=== PATIENT | male | born 1935 | race Caucasian/White ===

== ENCOUNTER 2023-10-08 17:53 | Inpatient (IN) | payer MEDICARE, SELFPAY ==
[2023-10-08] VITALS (24 sets, daily range): BP systolic 84–145; BP diastolic 52–105; PULSE 82–208; RESP 14–27; TEMP 36.6–37; O2SAT 93–99; BMI 29.5; BMI 26.4
--- NOTE | 2023-10-08 18:24 | RAD_ITS ---
EXAM: XR CHEST, 1 VIEW CLINICAL INDICATION: Weakness, CAD TECHNIQUE: Frontal view of the chest. COMPARISON: No relevant prior studies available. FINDINGS: LUNGS AND PLEURAL SPACES: Unremarkable. No consolidation or edema. No pneumothorax. No effusion. HEART: Unremarkable. Cardiac silhouette not enlarged. MEDIASTINUM: Central airways and mediastinal contour are unremarkable. BONES/JOINTS: Unremarkable. No acute fracture. SOFT TISSUES: Unremarkable. RAD/Chest 1 View (Portable) IMPRESSION: No radiographic evidence of acute cardiopulmonary disease. Electronically Signed: Sreekanth Soler MD at 19:19 EDT ,
--- NOTE | 2023-10-08 18:24 | CT_ITS ---
EXAM: CT ABDOMEN AND PELVIS WITH INTRAVENOUS CONTRAST CLINICAL INDICATION: Nausea and Vomiting TECHNIQUE: Helically acquired images were obtained of the abdomen and pelvis with intravenous contrast. This CT exam was performed using one or more of the following dose reduction techniques: automated exposure control, adjustment of the mA and/or kV according to patient size, and/or use of iterative reconstruction technique. CONTRAST: IV 100mL Isovue-300 COMPARISON: No relevant prior studies available. FINDINGS: LOWER THORAX: There is a small left-sided pleural effusion. There are coronary artery calcifications. No cardiomegaly. ABDOMEN: LIVER: There are low-density areas in the dome of the liver which may represent cysts or possibly a mass lesion. There is a nodular margin of the liver compatible with cirrhosis. GALLBLADDER AND BILE DUCTS: Unremarkable. No calcified gallstones. No gallbladder distention or wall edema. No intra- or extrahepatic biliary ductal dilation. PANCREAS: Unremarkable. No focal cystic or solid mass. SPLEEN: Unremarkable. Normal size without focal cystic or solid mass. ADRENALS: Unremarkable. No nodules. KIDNEYS AND URETERS: There are low-density masses in both kidneys compatible simple cysts. No follow-up imaging is necessary. No hydronephrosis. STOMACH AND BOWEL: There are sigmoid diverticulosis with no evidence of diverticulitis. No stomach or bowel distention. PELVIS: APPENDIX: No evidence of acute appendicitis. BLADDER: Unremarkable. REPRODUCTIVE: Unremarkable as visualized. No mass. ABDOMEN and PELVIS: INTRAPERITONEAL SPACE: There is a moderate amount of free fluid in the abdomen and pelvis compatible with ascites. No free air. BONES/JOINTS: There is beam hardening artifact in the pelvis due to bilateral hip replacements. No suspicious lytic or blastic abnormality. SOFT TISSUES: Unremarkable. No discrete abdominal or pelvic wall hernia. VASCULATURE: See above. LYMPH NODES: Unremarkable. No enlarged lymph nodes. CT/Abdomen/Pelvis W IV Cont ONLY IMPRESSION: 1. Nodular margin liver compatible cirrhosis. There is a large amount of free fluid in the abdomen ascites. 2. Multiple low-density areas near the dome of the right lobe of the liver which may represent multiple cysts or possibly a hepatic mass. If indicated further evaluation with MRI may be beneficial. 3. Left-sided pleural effusion with left basilar consolidation likely representing atelectasis. Electronically Signed: Sreekanth Soler MD at 20:18 EDT ,
--- NOTE | 2023-10-08 18:24 | EKG12_ITS ---
Test Reason : WEAKNESS Blood Pressure : / mmHG Vent. Rate : 096 BPM Atrial Rate : 096 BPM P-R Int : 170 ms QRS Dur : 086 ms QT Int : 378 ms P-R-T Axes : 045 -20 006 degrees QTc Int : 477 ms Normal sinus rhythm Possible Inferior infarct , age undetermined Cannot rule out Anterior infarct , age undetermined Abnormal ECG Confirmed by MICHAEL BOWLES, OLIVIER ([id number]), videotape editor VI AMBRIZ ([id number]) on 10/14/2023 1:39:56 PM Referred By: BOBBY Confirmed By:SAIDA RODRIGUEZ MD
--- NOTE | 2023-10-08 18:31 | EDS_ITS ---
HPI History of Present Illness Chief Complaint: Weakness Limited: dementia Narrative Narrative: 87-year-old male presents from home via EMS with generalized weakness, nausea and vomiting. His history and physical is mildly limited secondary to dementia. 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 They relate history that he has had nausea and vomiting over the last 4 days. They tried to get him up out of bed today as they live next- door, and he was generally weak. He usually assists in transfer by pressing on his bilateral hands, but today he was so weak that he slid down off the bed onto the floor. Patient states that he has had multiple episodes of vomiting, at least 20 times today without any blood in his emesis. He denies any problems with bowel movements, no diarrhea. [facility] Medical History (Updated 10/08/23 @ 22:12 by Enrique Anne MD) BPH (benign prostatic hyperplasia) Constipation GERD (gastroesophageal reflux disease) Hyperlipidemia Hypertension Hypokalemia Non-alcoholic cirrhosis Pancreatitis Prostate cancer Stroke Home Medications aspirin 81 mg tablet,delayed release (Adult Low Dose Aspirin) 81 mg PO DAILY 10/08/23 [History Last Taken Unknown] atorvastatin 80 mg tablet 80 mg PO DAILY 10/08/23 [History Last Taken Unknown] docusate sodium 100 mg capsule 100 mg PO DAILY PRN stool softener 10/08/23 [History Last Taken Unknown] furosemide 20 mg tablet 20 mg PO DAILY PRN edema 10/08/23 [History Last Taken Unknown] hydrocodone-acetaminophen 5-325mg 5mg-325mg 1 tab PO Q6H PRN PRN pain 10/08/23 [History Last Taken Unknown] hydrocortisone 2.5 % topical cream with perineal applicator (Procto-Med HC) 1 applic DC BID PRN skin irritation 10/08/23 [History Last Taken Unknown] lidocaine 5 % topical ointment 1 applic topical TID 10/08/23 [History Last Taken Unknown] pantoprazole 40 mg tablet,delayed release 40 mg PO DAILY 10/08/23 [History Last Taken Unknown] potassium chloride 8 mEq capsule,extended release 8 meq PO DAILY 10/08/23 [History Last Taken Unknown] spironolactone 25 mg tablet 25 mg PO DAILY 10/08/23 [History Last Taken Unknown] tamsulosin 0.4 mg capsule 0.4 mg PO DAILY 10/08/23 [History Last Taken Unknown] Allergy/AdvReac Type Severity Reaction Status Date / Time No Known Allergies Allergy Verified 10/08/23 18:43 Surgical History (Updated 10/08/23 @ 20:14 by Wali Ramírez) S/P triple vessel bypass Social History Smoking Status: Never smoker ROS ROS ED ROS Narrative Obtained from son-in-law. Constitutional: No fever, no chills. Generalized weakness. HEENT: No sore throat. No neck pain. No loss of vision. No rhinorrhea. Cardiovascular: No chest pain. No palpitations. No pedal edema. Respiratory: No cough, no shortness of breath. Abdominal: No abdominal pain. Positive nausea and vomiting, multiple episodes, no hematemesis, no diarrhea. Genitourinary: No dysuria. No hematuria. Musculoskeletal: No myalgias. No arthralgias. Neurologic: No headaches. No dizziness. No lightheadedness. Skin: No rash. No change in color. Psychiatric: No depression. No anxiety. EXAM Physical Exam Narrative Exam Narrative: Afebrile. Vital signs noted. HEENT: Normocephalic. Atraumatic. PERRL, EOMI. Neck soft and supple. No point tenderness or step off. Dry mucous membranes. Cardiovascular: Regular rate and rhythm with intermittent tachycardia. No murmurs, rubs, or gallops appreciated. Respiratory: No tachypnea. Lungs clear to auscultation bilaterally. Gastrointestinal: Abdomen soft, nontender, with normoactive bowel sounds. No rebound or guarding. Neurological: Awake. Alert. Nonfocal, nonlateralizing. Skin: No rash. Normal color. No pallor. Musculoskeletal: No pedal edema. Full range of motion extremities. Const Vital Signs: 10/08/23 17:56 10/08/23 18:01 10/08/23 18:01 Temperature 98.3 F Temperature Source Oral Pulse Rate 102 H Respiratory Rate 16 Respiratory Effort Normal Normal Respiratory Depth Normal Respiratory Pattern Tachypnea Normal Blood Pressure 108/83 H Blood Pressure Mean 91 Pulse Ox 94 Oxygen Delivery Method Room Air Room Air 10/08/23 18:36 10/08/23 18:45 10/08/23 19:01 Temperature 98.5 F 98.3 F Temperature Source Oral Oral Pulse Rate 99 94 Respiratory Rate 21 H 24 H Respiratory Effort Respiratory Depth Respiratory Pattern Blood Pressure 128/87 H 145/105 H Blood Pressure Mean 100 118 Pulse Ox 95 94 Oxygen Delivery Method Room Air Room Air Room Air 10/08/23 18:44 10/08/23 21:15 10/08/23 18:51 Temperature 98.6 F Temperature Source Oral Pulse Rate 91 97 Respiratory Rate 21 H 21 H Respiratory Effort Normal Respiratory Depth Normal Respiratory Pattern Tachypnea Blood Pressure 123/75 H Blood Pressure Mean 91 Pulse Ox 97 94 Oxygen Delivery Method Room Air Room Air 10/08/23 19:00 10/08/23 19:15 10/08/23 19:30 Temperature Temperature Source Pulse Rate 95 93 Respiratory Rate 14 23 H Respiratory Effort Respiratory Depth Respiratory Pattern Blood Pressure 145/105 H 144/76 H 139/83 H Blood Pressure Mean 115 95 89 Pulse Ox 93 96 Oxygen Delivery Method 10/08/23 19:38 10/08/23 19:45 10/08/23 20:00 Temperature Temperature Source Pulse Rate 208 H 91 96 Respiratory Rate 22 H 21 H 21 H Respiratory Effort Respiratory Depth Respiratory Pattern Blood Pressure 133/68 H Blood Pressure Mean 86 Pulse Ox 95 95 95 Oxygen Delivery Method Room Air 10/08/23 21:30 10/08/23 21:45 10/08/23 20:00 Temperature 98.4 F 98.1 F Temperature Source Oral Oral Pulse Rate 96 94 96 Respiratory Rate 27 H 16 21 H Respiratory Effort Respiratory Depth Respiratory Pattern Blood Pressure 112/72 103/70 116/69 Blood Pressure Mean 85 81 83 Pulse Ox 97 94 95 Oxygen Delivery Method Room Air Room Air 10/08/23 20:15 10/08/23 20:30 10/08/23 20:45 Temperature Temperature Source Pulse Rate 93 91 Respiratory Rate 21 H 18 22 H Respiratory Effort Respiratory Depth Respiratory Pattern Blood Pressure 129/76 H 140/76 H 84/52 L Blood Pressure Mean 87 96 61 Pulse Ox 94 95 94 Oxygen Delivery Method 10/08/23 21:00 10/08/23 21:15 10/08/23 21:30 Temperature Temperature Source Pulse Rate 91 93 Respiratory Rate 23 H 27 H Respiratory Effort Respiratory Depth Respiratory Pattern Blood Pressure 118/83 H 123/75 H 112/72 Blood Pressure Mean 94 90 81 Pulse Ox 97 96 Oxygen Delivery Method 10/08/23 21:45 10/08/23 21:46 Temperature Temperature Source Pulse Rate 94 Respiratory Rate 25 H 22 H Respiratory Effort Respiratory Depth Respiratory Pattern Blood Pressure 103/70 Blood Pressure Mean 82 Pulse Ox 96 Oxygen Delivery Method Sepsis Attestation Sepsis Alert: Yes Sepsis Attestation: Agree w/Sepsis (Unknown source) Date exam was performed: 10/08/23 Time exam was performed: 21:10 Possible Source of Sepsis: Unknown Sepsis Organ Dysfunction Criteria Present: Total Bilirubin > 2 mg/dl and Lactic Acid > 2 mmol/L Fluid Resuscitation Fluid resuscitation indicated?: Yes Fluid Resuscitation ordered: Lesser volume fluid bolus ordered Amount of fluid ordered: 2 Reason for lesser fluid bolus:: Concern for fluid overload and Other (Ascities and Pleural Effusion) Sepsis Note Time exam was performed: 21:50 Sepsis Attestation: Sepsis re-evaluation was performed (Patient not hypotensive) MDM MDM MDM Narrative Medical decision making narrative: Concern is for infectious process causing generalized weakness. With pneumonia in mind and urinary tract infection, chest x-ray and UA will be obtained. Patient could also be dehydrated given his reported multiple episodes of vomiting. With concerns for pancreatitis, lipase will also be obtained along with CBC and CMP. Patient was normotensive initially, but had a transient dip in his systolic blood pressure. He remained conscious. He will be bolused IV fluids and sepsis workup pursued. I reviewed the patient's laboratory work and he has slight elevation of his white count 11.1, hemoglobin 14.2, hematocrit 45.5, platelet count normal at 195. His INR is 1.3 and PTT slightly elevated 16.6. Chloride 110 with carbon dioxide normal at 25. BUN is elevated at 29 and creatinine elevated at 1.65. There is no prior with which to compare. He has an elevated total bilirubin of 4.7 with alk phos elevated at 138, AST is 268 but ALT normal at 43. Urinalysis is negative for infection with negative nitrite and 0 WBCs. I do not feel antibiotics are indicated. He has 5 ketones. His urine is juanito in color consistent with possible hepatorenal syndrome. I did review the radiology report of the CT of the abdomen pelvis with IV contrast. He has irregular contour of the liver consistent with cirrhosis, and a large amount of ascites as well. There is possibility of liver cyst versus liver mass on the radiology report as well. He has a left-sided pleural effusion. Chest x-ray interpreted by myself independently shows no pneumonia or pneumothorax. I reviewed the radiology report which confirms my independent interpretation. His lactic acid is elevated at 4.1. I am not sure this is sepsis because I do not have a source of infection. He has not had vomiting here in the emergency department. He was started on Zosyn and vancomycin and blood cultures obtained and are currently pending. Given his generalized weakness and his family's wishes to be admitted for placement in senior living/rehab, I discussed patient with Dr. Marin for admission. He would like him placed in the ICU. Patient is in guarded condition. History & Record Review Discussion w/independent historian: Patient and Family (Son-in-law) Additional record(s) reviewed:: No prior records Lab Data Attestation: I reviewed the patient's lab results. Labs: Laboratory Results - last 24 hr 10/08/23 10/08/23 18:15 18:33 WBC 11.1 H RBC 4.72 Hgb 14.2 Hct 45.5 MCV 96.4 H MCH 30.1 MCHC 31.2 L RDW Std Deviation 63.5 H RDW Coeff of Netta 18.2 H Plt Count 195 MPV 11.4 Immature Gran % (Auto) 0.600 Neut % (Auto) 84.5 H Lymph % (Auto) 5.9 L Sharp % (Auto) 8.6 Eos % (Auto) 0.0 Baso % (Auto) 0.4 Absolute Neuts (auto) 9.4 H Absolute Lymphs (auto) 0.65 L Nucleated RBC % 0 PT 16.6 H INR 1.3 APTT 29.2 Sodium 143 Potassium 4.6 Chloride 110 H Carbon Dioxide 25.0 Anion Gap 8 BUN 29 H Creatinine 1.65 H Est GFR (MDRD) Af Amer 51 L Est GFR (MDRD) Non-Af 42 L BUN/Creatinine Ratio 17.6 Glucose 149 H Lactic Acid 4.1 H* Calcium 10.0 Total Bilirubin 4.70 H AST 268 H ALT 43 Alkaline Phosphatase 138 H Troponin I High Sens 16 Total Protein 8.3 H Albumin 2.4 L Globulin 5.9 H Albumin/Globulin Ratio 0.4 L Lipase 20 Urine Color Juanito Urine Clarity Clear Urine pH 5.0 Ur Specific [place] 1.020 Urine Protein 30 H Urine Glucose (UA) Normal Urine Ketones 5 H Urine Occult Blood 50 H Urine Nitrite Negative Urine Bilirubin 1 H Urine Urobilinogen 8 H Ur Leukocyte Esterase 25 H Urine RBC 0-5 SEEN Urine WBC 0 SEEN Ur Squamous Epith Cells 0-5 SEEN Urine Bacteria RARE Urine Mucus 0 SEEN Radiography Diagnostic Testing: Clinical Impression(s) from Imaging Studies Abdomen/Pelvis CT 10/08/23 18:24 IMPRESSION: 1. Nodular margin liver compatible cirrhosis. There is a large amount of free fluid in the abdomen ascites. 2. Multiple low-density areas near the dome of the right lobe of the liver which may represent multiple cysts or possibly a hepatic mass. If indicated further evaluation with MRI may be beneficial. 3. Left-sided pleural effusion with left basilar consolidation likely representing atelectasis. Electronically Signed: Sreekanth Soler MD at 20:18 EDT , Chest X-Ray 10/08/23 18:24 IMPRESSION: No radiographic evidence of acute cardiopulmonary disease. Electronically Signed: Sreekanth Soler MD at 19:19 EDT , Management Discussion w/another healthcare provider: Hospitalist (Dr. Marin) Critical Care Time Critical care time (excluding procedures): 30-74 minutes (31 minutes), Including time spent:, Discussing w/Patient &/or Family/Show Card Letterer, Discussing w/Consultants, Arranging Admission or Transfer and Performing Direct Patient Care at Bedside Discharge Plan Dx/Rx/DC Orders Clinical Impression: Ascites, Unable to care for self, Generalized weakness, Cirrhosis of liver, Pleural effusion, Sepsis, Nausea and vomiting Disposition Disposition: Acute Care [facility]
[2023-10-08 18:34] LABS: Absolute Lymphocyte Count 0.65 X10^3/uL (0.83-4.51); Absolute Neutrophil Count 9.4 X10^3/uL (2.0-7.7); Basophil# 0.04 X10^3/uL; Basophil% 0.4 % (0-1); Hematocrit 45.5 % (40-54); Hemoglobin 14.2 g/dL (13.0-16.5); Lymphocyte # 0.65 X10^3/ul (0.83-4.51); Lymphocyte % 5.9 % (19-41); Mean Corp Hgb Conc 31.2 g/dL (32-36); Mean Corpuscular Hgb 30.1 pg (27.0-32.0); Mean Corpuscular Volume 96.4 fL (80-94); Mean Platelet Vol. 11.4 fl (6.2-12.0); Monocyte# 0.95 X10^3/uL; Monocyte% 8.6 % (0-10); NRBC Flagged by Analyzer 0 % (0-5); Neutrophil % 84.5 % (47-70); Platelet Count 195 K/mm3 (150-450); RBC Distribution Width CV 18.2 % (11.6-14.6); RBC Distribution Width SD 63.5 fl (35.1-43.9); Red Blood Count 4.72 M/mm3 (4.6-6.2); White Blood Count 11.1 K/mm3 (4.4-11.0)
[2023-10-08 18:44] LABS: Mucous, Urine 0 SEEN /hpf (<or=2+); White Blood Cells 0 SEEN /hpf (0-5)
[2023-10-08] MEDS: 0.9% Normal Saline (1000mL) 1,000 ML 999 ML IV ×3 (18:47→22:39)
[2023-10-08 18:51] LABS: International Normalized Ratio 1.3; Partial Thromboplast Time 29.2 Seconds (24.1-36.2); Prothrombin Time (Protime)PT. 16.6 SECONDS (11.7-14.9)
[2023-10-08 18:52] LABS: Color, Urine Amber (Yellow); Glucose, Dipstick Normal (Normal); Ketone-Dipstick 5 mg/dl (Negative); Leukocyte Esterase-Dipstick 25 /ul (Negative); Nitrite-Dipstick Negative (Negative); Occult Blood-Urine 50 /ul (Negative); Protein-Dipstick 30 mg/dl (Negative); Urine Clarity Clear (Clear); Urine Urobilinogen 8 mg/dl (Normal)
[2023-10-08 19:03] LABS: ALB/GLOB Ratio 0.4 RATIO (0.9-2.4); AST(SGOT) 268 U/L (15-37); Alanine Aminotransfer ALT/SGPT 43 U/L (16-61); Albumin, Serum 2.4 g/dL (3.2-5.0); Alkaline Phosphatase 138 U/L (45-117); Anion Gap 8 (5-15); BUN 29 mg/dL (7-18); BUN/Creat Ratio 17.6 RATIO (10-20); Chloride 110 mmol/L (98-107); Creatinine, Serum 1.65 mg/dL (0.70-1.30); EST Glomerular Filtration Rate 42 mL/min (>60); Est Glom Filt Rate - Afr Amer 51 mL/min (>60); Globulin 5.9 g/dL (2.2-4.2); Glucose 149 mg/dL (74-106); Lipase 20 U/L (13-75); Potassium 4.6 mmol/L (3.5-5.1); Protein, Total 8.3 g/dL (6.4-8.2); Sodium Level 143 mmol/L (136-145); Troponin-I HS 16 pg/mL (3.0-78.0)
[2023-10-08 19:05] LABS: Urine Bilirubin Dipstick 1 mg/dL (Negative)
[2023-10-08 19:07] LABS: Squamous Epithelial Cells - UA 0-5 SEEN /hpf (0-5)
[2023-10-08 19:08] LABS: Bacteria RARE /hpf (None Seen); Red Blood Cells-Urine 0-5 SEEN /hpf (0-5)
[2023-10-08 19:43] LABS: Lactic Acid 4.1 mmol/L (0.4-1.9)
[2023-10-08] MEDS: TICAGRELOR 90 MG TABLET 180 MG NG (20:23)
[2023-10-08] MEDS: Aspirin 81 MG TAB.CHEW 324 MG NG (20:23)
[2023-10-08] MEDS: Piperacil/Tazobactam 4.5 GM in 0.9% Normal Saline (100mL MB+) 100 ML IV (21:12)
--- NOTE | 2023-10-08 21:26 | HP.PCM.HOS_ITS ---
[facility] - General General Date of Admission: 10/08/23 Date of Service: 10/08/23 Chief Complaint: Nausea, Vomiting and Generalized Weakness. [facility] Narrative TREY GRESHAM, is a 87 M with a past medical history of essential hypertension, CAD; s/p CABG x 3, history of CVA, history of CHANEY; with cirrhosis, history of pancreatitis, BPH, history of prostate cancer, GERD, OA and chronic dementia who presents to [facility] ER complaining of nausea, vomiting and generalized weakness. Mr. Jon is not a fully reliable historian at this time so information was gathered from chart, medical staff and computer. According to the records he [place] to his son-in-law who is also his [employer] for medical care. He informed the ER staff that the patient has had nausea and vomiting over the past 4 days that has progressively worsened. They tried to get him up out of bed today and he was much weaker than normal and unable to even assist them in transferring out of bed. The patient was so weak that he slid off the bed onto the floor in spite of assistance. The son-in-law also reports the patient has had at least 20 episodes of bilious emesis today without any blood noted in his emesis or stool. There is no complaint of diarrhea, constipation, chest pain or abdominal pain. In the ER patient was noted to have a total bilirubin of 4.7 mg/dL with an elevated AST of 268 units/L and alkaline phosphatase of 138 units/L with leukocytosis of 11.1 present on admission and lactic acidosis of 4.1 present on admission with the ER physician diagnosing patient with sepsis of unknown origin and starting him on empiric IV vancomycin and Zosyn with a CT scan of the abdomen pelvis done on admission that revealed cirrhosis with large free fluid in the abdomen along with multiple low-density areas near the dome of the right lobe of the liver which may represent multiple cyst or possibly hepatic mass with MRI recommended finally patient was also noted to have a left-sided pleural effusion with left basilar consolidation suspicious for pneumonia versus atelectasis compounded by clinical evidence of generalized weakness with ambulatory dysfunction and suspected hepatic encephalopathy complicating chronic dementia and he was then admitted to the ICU for ongoing care for status expected to be greater than 48 hours. [facility] Medical History (Updated 10/09/23 @ 01:[address] Donny de Liam, DO) BPH (benign prostatic hyperplasia) Constipation Generalized weakness GERD (gastroesophageal reflux disease) Hyperlipidemia Hypertension Hypokalemia Non-alcoholic cirrhosis Pancreatitis Prostate cancer Stroke Home Medications aspirin 81 mg tablet,delayed release (Adult Low Dose Aspirin) 81 mg PO DAILY [History Last Taken Unknown] atorvastatin 80 mg tablet 80 mg PO DAILY 10/08/23 [History Last Taken Unknown] docusate sodium 100 mg capsule 100 mg PO DAILY PRN stool softener 10/08/23 [History Last Taken Unknown] furosemide 20 mg tablet 20 mg PO DAILY PRN edema 10/08/23 [History Last Taken Unknown] hydrocodone-acetaminophen 5-325mg 5mg-325mg 1 tab PO Q6H PRN PRN pain 10/08/23 [History Last Taken Unknown] hydrocortisone 2.5 % topical cream with perineal applicator (Procto-Med HC) 1 applic ND BID PRN skin irritation 10/08/23 [History Last Taken Unknown] lidocaine 5 % topical ointment 1 applic topical TID 10/08/23 [History Last Taken Unknown] pantoprazole 40 mg tablet,delayed release 40 mg PO DAILY 10/08/23 [History Last Taken Unknown] potassium chloride 8 mEq capsule,extended release 8 meq PO DAILY 10/08/23 [History Last Taken Unknown] spironolactone 25 mg tablet 25 mg PO DAILY 10/08/23 [History Last Taken Unknown] tamsulosin 0.4 mg capsule 0.4 mg PO DAILY 10/08/23 [History Last Taken Unknown] Allergy/AdvReac Type Severity Reaction Status Date / Time No Known Allergies Allergy Verified 10/08/23 18:43 Surgical History S/P triple vessel bypass Social History Smoking Status: Never smoker Vital Signs Vital Signs Vital Signs: 10/08/23 17:56 10/08/23 18:01 10/08/23 18:01 Temperature 98.3 F Temperature Source Oral Pulse Rate 102 H Respiratory Rate 16 Respiratory Effort Normal Normal Respiratory Depth Normal Respiratory Pattern Tachypnea Normal Blood Pressure 108/83 H Blood Pressure Mean 91 Pulse Ox 94 Oxygen Delivery Method Room Air Room Air 10/08/23 18:36 10/08/23 18:45 10/08/23 19:01 Temperature 98.5 F 98.3 F Temperature Source Oral Oral Pulse Rate 99 94 Respiratory Rate 21 H 24 H Respiratory Effort Respiratory Depth Respiratory Pattern Blood Pressure 128/87 H 145/105 H Blood Pressure Mean 100 118 Pulse Ox 95 94 Oxygen Delivery Method Room Air Room Air Room Air 10/08/23 18:44 10/08/23 21:15 10/08/23 18:51 Temperature 98.6 F Temperature Source Oral Pulse Rate 91 97 Respiratory Rate 21 H 21 H Respiratory Effort Normal Respiratory Depth Normal Respiratory Pattern Tachypnea Blood Pressure 123/75 H Blood Pressure Mean 91 Pulse Ox 97 94 Oxygen Delivery Method Room Air Room Air 10/08/23 19:00 10/08/23 19:15 10/08/23 19:30 Temperature Temperature Source Pulse Rate 95 93 Respiratory Rate 14 23 H Respiratory Effort Respiratory Depth Respiratory Pattern Blood Pressure 145/105 H 144/76 H 139/83 H Blood Pressure Mean 115 95 89 Pulse Ox 93 96 Oxygen Delivery Method 10/08/23 19:38 10/08/23 19:45 10/08/23 20:00 Temperature Temperature Source Pulse Rate 208 H 91 96 Respiratory Rate 22 H 21 H 21 H Respiratory Effort Respiratory Depth Respiratory Pattern Blood Pressure 133/68 H Blood Pressure Mean 86 Pulse Ox 95 95 95 Oxygen Delivery Method Room Air Weight Weight: 200 lb 6.403 oz Body Mass Index (BMI) 29.5 Results Lab / Micro Data 10/08/23 18:15 10/08/23 18:15 Labs: Laboratory Results - last 24 hr 10/08/23 18:15: WBC 11.1 H, RBC 4.72, Hgb 14.2, Hct 45.5, MCV 96.4 H, MCH 30.1, MCHC 31.2 L, RDW Std Deviation 63.5 H, RDW Coeff of Netta 18.2 H, Plt Count 195, MPV 11.4, Immature Gran % (Auto) 0.600, Neut % (Auto) 84.5 H, Lymph % (Auto) 5.9 L, [place] % (Auto) 8.6, Eos % (Auto) 0.0, Baso % (Auto) 0.4, Absolute Neuts (auto) 9.4 H, Absolute Lymphs (auto) 0.65 L, Nucleated RBC % 0, PT 16.6 H, INR 1.3, APTT 29.2, Sodium 143, Potassium 4.6, Chloride 110 H, Carbon Dioxide 25.0, Anion Gap 8, BUN 29 H, Creatinine 1.65 H, Est GFR (MDRD) Af Amer 51 L, Est GFR (MDRD) Non-Af 42 L, BUN/Creatinine Ratio 17.6, Glucose 149 H, Lactic Acid 4.1 H*, Calcium 10.0, Total Bilirubin 4.70 H, AST 268 H, ALT 43, Alkaline Phosphatase 138 H, Troponin I High Sens 16, Total Protein 8.3 H, Albumin 2.4 L, Globulin 5.9 H, Albumin/Globulin Ratio 0.4 L, Lipase 20 10/08/23 18:33: Urine Color Ani, Urine Clarity Clear, Urine pH 5.0, Ur Specific Bell 1.020, Urine Protein 30 H, Urine Glucose (UA) Normal, Urine Ketones 5 H, Urine Occult Blood 50 H, Urine Nitrite Negative, Urine Bilirubin 1 H, Urine Urobilinogen 8 H, Ur Leukocyte Esterase 25 H, Urine RBC 0-5 SEEN, Urine WBC 0 SEEN, Ur Squamous Epith Cells 0-5 SEEN, Urine Bacteria RARE, Urine Mucus 0 SEEN Imaging Radiology Impression Abdomen/Pelvis CT 10/08/23 18:24 IMPRESSION: 1. Nodular margin liver compatible cirrhosis. There is a large amount of free fluid in the abdomen ascites. 2. Multiple low-density areas near the dome of the right lobe of the liver which may represent multiple cysts or possibly a hepatic mass. If indicated further evaluation with MRI may be beneficial. 3. Left-sided pleural effusion with left basilar consolidation likely representing atelectasis. Electronically Signed: Sreekanth Soler MD at 20:18 EDT , Chest X-Ray 10/08/23 18:24 IMPRESSION: No radiographic evidence of acute cardiopulmonary disease. Electronically Signed: Sreekanth Soler MD at 19:19 EDT , Assessment & Plan Assessment/Plan (1) Sepsis: QUALIFIERS: Sepsis type: sepsis due to unspecified organism Sepsi s acute organ dysfunction status: unspecified Qualified Code(s): A41.9 - Sepsis, unspecified organism (2) Pneumonia: QUALIFIERS: Pneumonia type: due to unspecified organism Laterality: left Lung location: lower lobe of lung Qualified Code(s): J18.9 - Pneumonia, unspecified organism (3) Pleural effusion: (4) Nausea and vomiting: QUALIFIERS: Vomiting type: unspecified Qualified Code(s): R11.2 - Nausea with vomiting, unspecified (5) Cirrhosis of liver: QUALIFIERS: Hepatic cirrhosis type: unspecified hepatic cirrhosis Ascites presence: with ascites Qualified Code(s): K74.60 - Unspecified cirrhosis of liver; R18.8 - Other ascites (6) Generalized weakness: (7) Ambulatory dysfunction: PLAN: Plan 1. CT evidence of left pleural effusion with left basilar consolidation logan spicious for pneumonia versus atelectasis complicated by lactic acidosis of 4.1 mmol/L present on admission and leukocytosis of 11.1 present on admission suspicious for possible underlying sepsis - Admit to ICU for treatment under the sepsis protocol. Continue empiric IV Vancomycin and IV Zosyn begun in the ER and await culture and sensitivity data. 2. Total bilirubin of 4.7 mg/dL with an elevated AST of 268 units/L and alkaline phosphatase of 138 units/L in the setting of known CHANEY with cirrhosis with large fluid in abdomen on CT and clinical evidence of hepatic encephalopathy in the setting of chronic dementia compounding #1 - Check serum ammonia level to confirm suspicion. 3. Intractable nausea and vomiting x 4 days with subsequent dehydration causing elevated creatinine of 1.65 mg deciliter and BUN of 29 mg/dL present on admission with no baseline labs available for comparison adding to the pathology of #1 & #2 - Give vigorous IV volume resuscitation and recheck BMP in the a.m. to ensure improvement. Give Zofran IV as needed for nausea vomiting. 4. Generalized weakness with ambulatory dysfunction arising from #1 - #3 - PT/OT and case management consult and treat on rounds in the a.m. for further recommendations with help appreciated in advance. 5. Essential hypertension - Hold scheduled antihypertensives until infections are neutralized. 6. CAD; s/p CABG x 3 - Noted. Serialize troponin. 7. History of CVA - Noted. 8. History of pancreatitis - Noted with normal lipase of 20 units/L present on admission and no evidence of pancreatic inflammation on CT imaging. 9. BPH - Noted. 10. History of prostate cancer - Noted. Check PSA in light of suspicious lesions in the liver noted on CT described in #2. 11. GERD - Continue PPI IV. 12. OA - Stable. 13. DVT prophylaxis - Lovenox 40 mg sq daily plus SCD's. Total time: Approximately 85 minutes. Sepsis Attestation Sepsis Alert: Yes Sepsis Attestation: Agree w/Sepsis Date exam was performed: 10/08/23 Time exam was performed: 22:00 Possible Source of Sepsis: Pulmonary and GI tract/intra-abdominal Sepsis Organ Dysfunction Criteria Present: Lactic Acid > 2 mmol/L and New/Unexplained change in mental status Fluid Resuscitation Fluid resuscitation indicated?: Yes Fluid Resuscitation ordered: 30 ml/kg fluid bolus ordered Amount of fluid ordered: 3 Sepsis Note Date exam was performed: 10/09/23 Time exam was performed: 02:00 Sepsis Attestation: Sepsis re-evaluation was performed Response to fluids: Fluid responsive hypotension Charges/Coding Visit Charges Inpatient E&M: 33204 Init Hosp L3
--- NOTE | 2023-10-08 21:45 | ED.RN ---
REPORT CALLED TO ICU NURSE LA
[2023-10-08] MEDS: Vancomycin HCl 2,000 MG in 0.9% Normal Saline (500mL Bag) 500 ML 250 MG IV (22:03)
--- NOTE | 2023-10-08 22:22 | ED.RN ---
2222: attempted to call family about patient admission, no answer.
[2023-10-08 22:24] LABS: Reflex Lactate? Y
--- NOTE | 2023-10-08 22:42 | PCM.RX.CS ---
Consult Antibiotic Management Pharmacy has been consulted to manage selected antibiotic: Vancomycin Type of Intervention Type of Consult: New start Labs Labs: Sodium 143 mmol/L (136-145) 10/08/23 18:15 Potassium 4.6 mmol/L (3.5-5.1) 10/08/23 18:15 Chloride 110 mmol/L (98-107) H 10/08/23 18:15 Carbon Dioxide 25.0 mmol/L (21.0-32.0) 10/08/23 18:15 Anion Gap 8 (5-15) 10/08/23 18:15 BUN 29 mg/dL (7-18) H 10/08/23 18:15 Creatinine 1.65 mg/dL (0.70-1.30) H 10/08/23 18:15 Est GFR (MDRD) Af Amer 51 mL/min (>60) L 10/08/23 18:15 Est GFR (MDRD) Non-Af 42 mL/min (>60) L 10/08/23 18:15 BUN/Creatinine Ratio 17.6 RATIO (10-20) 10/08/23 18:15 Glucose 149 mg/dL (74-106) H 10/08/23 18:15 Dosing Weight Weight used for dosin.3 kg Estimated Creatinine Clearance Estimated Creatinine Clearance: 36.5 Goal Trough Goal Trough: 15-20 mcg/mL Pharmacy Plan for Drug Dosing Pharmacy Plan for Drug Dosing: Pharmacy Service will continue to monitor and adjust dosing as required. 2000MG IN ER, 1250 Q24H TROUGH PRIOR TO 3RD DOSE Follow-Up Labs Follow-Up Labs: Trough: Vancomycin Date/Time Labs Ordered Labs to be done on [date and time ordered]: 10/09 @ 2720
[2023-10-08 23:05] LABS: BNP,B-Type NATRIURETIC PEPTIDE 142.5 pg/mL (0-100)
[2023-10-08 23:07] LABS: Troponin-I HS 16 pg/mL (3.0-78.0)
[2023-10-08 23:13] LABS: Procalcitonin 0.51 ng/mL (0.00-0.09)
[2023-10-08 23:15] LABS: Lactic Acid 2.4 mmol/L (0.4-1.9)
[2023-10-09] VITALS (16 sets, daily range): BP systolic 103–148; BP diastolic 52–90; PULSE 80–106; RESP 20–28; TEMP 36.2–36.8; O2SAT 90–99; BMI 26.4
--- NOTE | 2023-10-09 | FLU_PTH ---
PATIENT: TREY GRESHAM LOC: [facility] U#:[id number] AGE/SX: 87/M ROOM: [facility] RE10/08/[address]: Dr. Serena Ross DO : 1935 BED: 1 DIS: 10/12/2023 SPEC #: [id number] RECD: 10/09/23 14:18 STATUS: KADE REQ #: [id number] FATUMA: 10/09/23 00:[address]: Serena Ross DEPT: CYTOLOGY RECD BY: Roopa West ENTERED: 10/10/23 11:32 SP TYPE: Fluid OTHR DR: DO Dr. Montez Lorenzo MD Tissues: PARACENTESIS FLUID Procedures: Special Stain Group II Surgery Specimen Level IV Cytospin Fluid HEADER OPERATION: Ultrasound guided paracentesis PRE-OP DIAGNOSIS: TISSUE SUBMITTED: Paracentesis fluid for cytology DIAGNOSIS CYTOLOGY Paracentesis fluid for cytology (cytospin and cellblock): Negative for malignant cells. See comment. SJ/mr 10/11/23 COMMENT Clinical correlation and appropriate follow up are necessary. CYTOLOGY STUDY Slides are reviewed. CYTOLOGY GROSS Received is 90 ml of red cloudy fluid labeled with the patient's name and and designated per the requisition as Paracentesis fluid. Submitted for cytology preparation including cell block. mr 10/10/23 TC:5 CPT: 30373 ,85960
--- NOTE | 2023-10-09 05:55 | RAD_ITS ---
EXAM: XR CHEST, 1 VIEW CLINICAL INDICATION: Left pleural effusion with suspected pneumonia. Left pleural effusion with suspected pneumonia. TECHNIQUE: Frontal view of the chest. COMPARISON: Chest x-ray 10/08/2023. CT scan abdomen and pelvis 10/08/2023. FINDINGS: LUNGS AND PLEURAL SPACES: There is a small left pleural effusion or left basilar atelectasis. No pneumothorax. HEART: Unremarkable. Cardiac silhouette not enlarged. MEDIASTINUM: Central airways and mediastinal contour are unremarkable. BONES/JOINTS: There are sternotomy wires. No acute fracture. SOFT TISSUES: Unremarkable. RAD/Chest 1 View (Portable) IMPRESSION: 1. Persistent small left pleural effusion with left basilar atelectasis. 2. No significant change. Electronically Signed: Ruben Chatman MD at 6:01 EDT Reading Location ID and State: [facility] / [place] , Service support ,
[2023-10-09] MEDS: Piperacil/Tazobactam 3.375 GM in 0.9% Normal Saline (50mL MB+) 50 ML IV ×3 (06:00→22:52)
[2023-10-09] MEDS: 0.9% Saline Lock 10 ML Syringe IV (06:37)
[2023-10-09 06:42] LABS: Absolute Lymphocyte Count 0.74 X10^3/uL (0.83-4.51); Absolute Neutrophil Count 6.6 X10^3/uL (2.0-7.7); Basophil# 0.02 X10^3/uL; Basophil% 0.2 % (0-1); Eosinophil# 0.05 X10^3/uL; Eosinophils% 0.6 % (0-5); Hematocrit 40.4 % (40-54); Hemoglobin 12.4 g/dL (13.0-16.5); Lymphocyte # 0.74 X10^3/ul (0.83-4.51); Lymphocyte % 9.1 % (19-41); Mean Corp Hgb Conc 30.7 g/dL (32-36); Mean Corpuscular Hgb 29.7 pg (27.0-32.0); Mean Corpuscular Volume 96.9 fL (80-94); Mean Platelet Vol. 11.6 fl (6.2-12.0); Monocyte# 0.75 X10^3/uL; Monocyte% 9.2 % (0-10); NRBC Flagged by Analyzer 0 % (0-5); Neutrophil # 6.55 X10^3/uL (2.7-7.7); Neutrophil % 80.4 % (47-70); Platelet Count 142 K/mm3 (150-450); RBC Distribution Width CV 18.6 % (11.6-14.6); RBC Distribution Width SD 63.8 fl (35.1-43.9); Red Blood Count 4.17 M/mm3 (4.6-6.2); White Blood Count 8.2 K/mm3 (4.4-11.0)
[2023-10-09 06:59] LABS: ALB/GLOB Ratio 0.4 RATIO (0.9-2.4); AST(SGOT) 205 U/L (15-37); Alanine Aminotransfer ALT/SGPT 37 U/L (16-61); Alkaline Phosphatase 111 U/L (45-117); Anion Gap 5 (5-15); BUN 28 mg/dL (7-18); BUN/Creat Ratio 18.7 RATIO (10-20); Calcium,Total 8.7 mg/dL (8.5-10.1); Chloride 115 mmol/L (98-107); EST Glomerular Filtration Rate 47 mL/min (>60); Est Glom Filt Rate - Afr Amer 57 mL/min (>60); Estimated Creatinine Clearance 38.08 ml/min; Glucose 124 mg/dL (74-106); Magnesium 2.3 mg/dL (1.6-2.6); Phosphorus 3.2 mg/dL (2.5-4.9); Potassium 4.2 mmol/L (3.5-5.1); Sodium Level 144 mmol/L (136-145); Thyroid Stim Hormone (TSH) 0.94 uIU/mL (0.358-3.74)
--- NOTE | 2023-10-09 07:29 | PCM.PN.HOSP ---
Reason for Visit Reason for Visit: Nausea/vomiting/generalized weakness Subjective Subjective Mr. Colmenares is an 87-year-old white male with a complicated past medical history who presented to the emergency department at [facility] on 10/08/2023 with nausea, vomiting, and generalized weakness. Per documentation, the patient lives [place]-door to his son-in-law who is also his DPOA for healthcare and he informed the ER staff that the patient has had nausea and vomiting for about 4 days prior to presentation. They tried to get him up out of bed on the day of presentation and he was so much weaker than his baseline and unable to assist them in transferring him out of bed. He slid out of bed onto the floor despite the assistance of family. The son-in-law also reported that he had about 20 episodes of bilious vomitus on the day prior to presentation with no hematemesis noted. He had no injuries with sliding to the floor. Upon presentation his temperature was 98.3, heart rate 102, blood pressure was 108/83, respiratory rate 16 and oxygen saturations were 94% on room air. CBC on presentation showed a white count of 11.1 with a left shift having an 84.5% neutrophilia. Hemoglobin and platelet counts were normal. Coags were slightly abnormal with a mildly elevated PT at 16.6 and an INR of 1.3. He is not on anticoagulation. His chemistry panel showed normal electrolytes but his serum BUN and creatinine were elevated at 29 and 1.65 respectively. Baseline is unknown. Lactic acid was 4.1 with a repeat of 2.4. His alkaline phosphatase was 1.38, ALT was 43, AST was 268 and total bilirubin was 4.7. Cardiac enzymes were normal at 16 x 2. His ammonia level was 15. Procalcitonin was 0.51 but I am unclear as what to make of this in the setting of NARENDRA versus CKD. His UA was not suggestive of infection but did have some occult blood. Rapid COVID/flu/RSV was unremarkable. Strep pneumo and Legionella antigen were more unremarkable. Blood and urine cultures are pending. Initial chest x-ray was unremarkable. CT of the abdomen pelvis was performed and showed a nodular liver compatible with cirrhosis, large amount of free fluid in the abdomen consistent with ascites, multiple low-density areas in the dome of the right liver which were suggestive of cyst versus mass and further evaluation with MRI was recommended and a left sided pleural effusion with compressive atelectasis was noted. Patient states he is feeling better overall. Denies any nausea or vomiting. Nursing staff confirms. Patient is confused and oriented only to self at this time. Baseline is unclear. Objective Data Objective Data Vital Signs: Vital Signs Temp Pulse Resp BP Pulse Ox O2 Del Method 98.2 F 92 24 H 121/77 H 96 Room Air 10/09/23 07:00 10/09/23 07:00 10/09/23 07:00 10/09/23 07:00 10/09/23 07:00 10/09/23 07:00 Oxygen Delivery Method Room Air Weight: 88.3 kg Body Mass Index (BMI) 26.4 Intake & Output: Intake and Output for Last 24 Hours 10/07/23 10/08/23 10/09/23 23:59 23:59 23:59 Intake Total 2482.95 / 2582.95 640 / 640 Output Total 400 / 400 Balance 2482.95 / 2582.95 240 / 240 Lab / Micro Data 10/09/23 04:15 10/09/23 04:15 Labs: Laboratory Results - last 24 hr 10/08/23 18:15: WBC 11.1 H, RBC 4.72, Hgb 14.2, Hct 45.5, MCV 96.4 H, MCH 30.1, MCHC 31.2 L, RDW Std Deviation 63.5 H, RDW Coeff of Netta 18.2 H, Plt Count 195, MPV 11.4, Immature Gran % (Auto) 0.600, Neut % (Auto) 84.5 H, Lymph % (Auto) 5.9 L, Victoria % (Auto) 8.6, Eos % (Auto) 0.0, Baso % (Auto) 0.4, Absolute Neuts (auto) 9.4 H, Absolute Lymphs (auto) 0.65 L, Nucleated RBC % 0, PT 16.6 H, INR 1.3, APTT 29.2, Sodium 143, Potassium 4.6, Chloride 110 H, Carbon Dioxide 25.0, Anion Gap 8, BUN 29 H, Creatinine 1.65 H, Est GFR (MDRD) Af Amer 51 L, Est GFR (MDRD) Non-Af 42 L, BUN/Creatinine Ratio 17.6, Glucose 149 H, Lactic Acid 4.1 H*, Calcium 10.0, Total Bilirubin 4.70 H, AST 268 H, ALT 43, Alkaline Phosphatase 138 H, Troponin I High Sens 16, Total Protein 8.3 H, Albumin 2.4 L, Globulin 5.9 H, Albumin/Globulin Ratio 0.4 L, Lipase 20 10/08/23 18:33: Urine Color Ani, Urine Clarity Clear, Urine pH 5.0, Ur Specific [place] 1.020, Urine Protein 30 H, Urine Glucose (UA) Normal, Urine Ketones 5 H, Urine Occult Blood 50 H, Urine Nitrite Negative, Urine Bilirubin 1 H, Urine Urobilinogen 8 H, Ur Leukocyte Esterase 25 H, Urine RBC 0-5 SEEN, Urine WBC 0 SEEN, Ur Squamous Epith Cells 0-5 SEEN, Urine Bacteria RARE, Urine Mucus 0 SEEN 10/08/23 22:25: Lactic Acid 2.4 H*, Ammonia 15.0, Troponin I High Sens 16, B-Natriuretic Peptide 142.5 H, Procalcitonin 0.51 H 10/09/23 04:15: WBC 8.2, RBC 4.17 L, Hgb 12.4 L, Hct 40.4, MCV 96.9 H, MCH 29.7, MCHC 30.7 L, RDW Std Deviation 63.8 H, RDW Coeff of Netta 18.6 H, Plt Count 142 L, MPV 11.6, Immature Gran % (Auto) 0.500, Neut % (Auto) 80.4 H, Lymph % (Auto) 9.1 L, Victoria % (Auto) 9.2, Eos % (Auto) 0.6, Baso % (Auto) 0.2, Absolute Neuts (auto) 6.6, Absolute Lymphs (auto) 0.74 L, Nucleated RBC % 0, Sodium 144, Potassium 4.2, Chloride 115 H, Carbon Dioxide 24.0, Anion Gap 5, BUN 28 H, Creatinine 1.50 H, Estim Creat Clear Calc 38.08, Est GFR (MDRD) Af Amer 57 L, Est GFR (MDRD) Non-Af 47 L, BUN/Creatinine Ratio 18.7, Glucose 124 H, Calcium 8.7, Phosphorus 3.2, Magnesium 2.3, Total Bilirubin 4.10 H, AST 205 H, ALT 37, Alkaline Phosphatase 111, Total Protein 7.0, Albumin 2.0 L, Globulin 5.0 H, Albumin/Globulin Ratio 0.4 L, TSH 0.94 Micro: Microbiology 10/08/23 22:20 Mucosa - Nasopharyngeal SARS-CoV-2, Influenza & RSV (PCR) - Final 10/08/23 18:33 Urine Catheter - [place] Legionella Antigen - Final 10/08/23 18:33 Urine Catheter - [place] Streptococcus pneumoniae Antigen (M - Final Radiography Diagnostic Testing: Radiology Impression Abdomen/Pelvis CT 10/08/23 18:24 IMPRESSION: 1. Nodular margin liver compatible cirrhosis. There is a large amount of free fluid in the abdomen ascites. 2. Multiple low-density areas near the dome of the right lobe of the liver which may represent multiple cysts or possibly a hepatic mass. If indicated further evaluation with MRI may be beneficial. 3. Left-sided pleural effusion with left basilar consolidation likely representing atelectasis. Electronically Signed: Sreekanth Soler MD at 20:18 EDT , Chest X-Ray 10/08/23 18:24 IMPRESSION: No radiographic evidence of acute cardiopulmonary disease. Electronically Signed: Sreekanth Soler MD at 19:19 EDT , Chest X-Ray 10/09/23 05:55 IMPRESSION: 1. Persistent small left pleural effusion with left basilar atelectasis. 2. No significant change. Electronically Signed: Ruben Chatman MD at 6:01 EDT , Physical Exam Const alert, no apparent distress and average body habitus; Negative for healthy appearing Constitutional Narrative: Elderly, white male, sitting up in bed, nursing assistance at bedside getting him up into a chair, does not appear toxic, appears comfortable, oriented only to self Orientation / Consciousness: confused HEENT head/scalp atraumatic HEENT Narrative: Dentition is poor, Mallampati is 2, no thrush, mucous membranes are dry, mild to moderate hearing loss Head and Scalp: normocephalic Eyes PERRL, EOMs intact bilaterally and conjunctivae normal Eyes Narrative: No scleral icterus Neck no lymphadenopathy and supple Neck Narrative: Trachea midline, no thyroid enlargement Resp normal respiratory effort, no retractions, no use of accessory muscles and No clear to auscultation bilaterally Resp Narrative: Diminished at right base with left basilar crackles Auscultation: crackles; Negative for rhonchi or wheezes Cardio regular rate, regular rhythm, S1 normal heart sound, S2 normal heart sound, no murmurs, no rub, no gallops and no clicks GI GI Narrative: Mild distention, fluid wave noted, bowel sounds are normal, abdomen is soft and nontender Extremity Extremity Narrative: Trace bilateral lower extremity edema, pedal pulses are 2+ bilaterally, no cyanosis or clubbing Skin No no rashes or lesions noted, No no wounds, skin turgor normal, No no jaundice, no petechiae and no mottling Skin Narrative: Skin is thin and fragile with few scattered ecchymosis, right facial ecchymosis noted at the lateral jaw, patient appears mildly jaundiced Neuro No oriented x3, CN's II-XII intact bilaterally and moves all extremities Neuro Narrative: Significant generalized weakness noted-proximal greater than distal with no focal deficits Sensorium / Orientation: awake, alert and oriented to person Speech: speech normal Psych affect normal Psych Narrative: Very pleasant, eye contact is good, patient Assessment & Plan Assessment/Plan (1) Ascites: (2) Nausea and vomiting: QUALIFIERS: Vomiting type: unspecified Qualified Code(s): R11.2 - Nausea with vomiting, unspecified (3) Ambulatory dysfunction: (4) Generalized weakness: (5) Sepsis: QUALIFIERS: Sepsis acute organ dysfunction status: unspecified Sepsis type: sepsis due to unspecified organism Qualified Code(s): A41.9 - Sepsis, unspecified organism PLAN: Patient does not meet any Sep 3 criteria and therefore diagnosis is not consistent with sepsis despite elevated lactate which is most likely elevated due to his intractable nausea and vomiting and dehydration which was acute on presentation (6) Abnormal CT of liver: (7) Thrombocytopenia: (8) Anemia: (9) Lactic acidosis: (10) Elevated serum creatinine: (11) Hyperbilirubinemia: (12) Toxic metabolic encephalopathy: PLAN: Plan Intractable nausea and vomiting -Seemingly better -Continue IV fluids -Continue as needed antiemetics -We will start clear liquid diet and monitor for advancement -Will check stool studies if diarrhea develops Left-sided pleural effusion -I reviewed the images and the consolidation is highly suggestive of compressive atelectasis related to his pleural effusion -Has large volume ascites which is probably the etiology of his effusion -Will order paracentesis for fluid removal which should in turn help his pleural effusion -Monitor clinically -Patient is not requiring any supplemental oxygen Ascites -Rule out SBP and obtain paracentesis with fluid analysis, cytology, and cultures -Does have evidence of cirrhosis on the CT of his abdomen and pelvis -Continue empiric vancomycin and Zosyn -Blood and urine cultures have been obtained -Patient does not meet Sep 3 criteria for sepsis Elevated serum creatinine -Baseline serum creatinine is unknown as we have no previous data in our computer system -Serum creatinine on presentation was 1.65 with repeat today at 1.50 -Patient was given fluid boluses but not on any maintenance fluids -Continue normal saline at 75 cc/h for now and continue to monitor renal function -Avoid nephrotoxins as able -Highly suspect dehydration with volume depletion on presentation due to 4 days of nausea and vomiting and decreased p.o. intake Toxic/metabolic encephalopathy -Hepatic encephalopathy ruled out with a normal ammonia -Like related to the above with superimposed dementia -Continue to monitor clinically and should resolve as we treat the underlying issues Abnormal CT of the liver -Liver with nodularity and multiple hypodense lesions near the dome of the right lobe of the liver -Cyst versus mass -Check MRI of the abdomen and pelvis with contrast -Check AFP -It is documented the patient has previous history of alcohol abuse Lactic acidosis -Resolving -Initial lactate at 4.1 with repeat at 2.4 after IV fluids -Highly anticipate this is related to dehydration with his nausea and vomiting and decreased clearance due to his renal function Hyperbilirubinemia -Baseline is unknown -Patient with cirrhosis on CT scan -May be related to this and suspect patient may have chronically elevated bilirubin -Will trend to see if we can come up with his baseline Thrombocytopenia -Counts were normal on presentation and slightly now now -Highly suspect he may have some thrombocytopenia at baseline with his liver disease -Will continue to monitor Mild anemia -Baseline unknown -Continue to monitor -No signs of acute blood loss Essential hypertension -We will hold antihypertensives for now -At baseline he is on Lasix as needed and Aldactone Hyperlipidemia -Continue home atorvastatin BPH with obstruction/history of prostate cancer -Continue home Flomax GERD -Continue home PPI History of pancreatitis -Suspect alcohol related with his history -Lipase was normal on presentation and CT does not show any evidence of pancreatitis CAD/history of stroke -Previous CABG x 3 -Cardiac enzymes are unremarkable -Continue home aspirin DVT prophylaxis -Lovenox 40 mg subcu daily CODE STATUS -It does not appear that this is delineated and we will need to figure this out once family is able to assist Charges/Coding Visit Charges Inpatient E&M: 58056 Subs Hosp L3
--- NOTE | 2023-10-09 07:40 | MRI_ITS ---
EXAM: MR ABDOMEN WITHOUT AND WITH INTRAVENOUS CONTRAST CLINICAL INDICATION: liver lesions TECHNIQUE: Multiplanar and multisequence MR images of the abdomen without and with intravenous contrast. CONTRAST: IV 18ml Clariscan COMPARISON: No relevant prior studies available. FINDINGS: ARTIFACTS: Motion artifacts degrade the overall quality of the exam. LOWER THORAX: Left pleural effusion. LIVER: 12 cm mass occupies hepatic segments 5 and 8 extending along the dome of the liver highly suspicious for hepatocellular carcinoma. Nodular contour of the liver related to cirrhosis. GALLBLADDER AND BILE DUCTS: Pericholecystic fluid noted likely related to underlying liver disease. No evidence of gallstones. No dilatation of the biliary tree. PANCREAS: Normal. No focal cystic or solid mass. SPLEEN: Spleen is enlarged measuring 16.3 cm in maximum length likely related to underlying portal hypertension. ADRENALS: Normal. No nodules. KIDNEYS AND URETERS: Multiple bilateral renal cysts. INTRAPERITONEAL SPACE: Small volume ascites noted within the upper abdomen. No free air. VASCULATURE: Filling defect within the portal vein at the marcus hepatis which may represent tumor thrombus. Abdominal aorta is non-dilated. LYMPH NODES: No enlarged lymph nodes. MRI/MRI Abd WITH and W/O Contrast IMPRESSION: 1. 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 2. 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 Electronically Signed: Eren Peterson MD at 17:07 EDT ,
[2023-10-09] MEDS: Aspirin E.C. 81 MG Tablet PO (09:04)
[2023-10-09] MEDS: Tamsulosin HCl 0.4 MG Capsule PO (09:04)
[2023-10-09] MEDS: 0.9% Normal Saline (1000mL) 1,000 ML 75 ML IV ×2 (09:04→20:47)
[2023-10-09] MEDS: Pantoprazole Sodium 40 MG in 0.9% Normal Saline (100mL MB+) 100 ML 330 MG IV (09:04)
--- NOTE | 2023-10-09 11:51 | CASEMGMT ---
RN CM Assessment Face to Face with patient for initial transition planning/care coordination assessment. Pt is disoriented and is a poor historian. Pt daughter and SIM are the DPOA. TC to Daughter phone at this time, and the Son in law (Eren) answers. Eren states that he is willing to answer this RN CM questions for assessment. Care providers, pharmacy, and demographics verified. Admitting dx: Sepsis LACE Strata: 1 PCP: Montez Marshall Specialists: Yonas Preferred Pharmacy: [facility] Insurance: [facility] Prescription Benefit: Yes LNOK: Savannah Crocker (MANUELA), Eren Crocker (SIM). They live right next door to the pt home. Living Arrangements: Pt lives with his other daughter (Shabnam Colmenares) and GD in a single story home with a BM and 1 step to enter. Pt SIM states that the pt does not use the basement. ADLs/IADLs: Family helps with ADLS Transportation: Family rotates DME: Walker, cane, W/C, Walk in shower with GB and seat, raised toilet seat, BSC, BP Cuff, Pulse Ox. HHC/SNF: Pt SIM states the pt has a Hx of HHC but it's been awhile and I don't remember the name. SIM states the pt has a Hx at [facility]. Plan: TBD. Therapy evals are pending. Pt SIM states that the pt will be safe to return home and may be interested in HHC. Pt SIM states that he would like the pt to have PT here and see how the pt does. CM to follow. Ritchie Gifford RN, CM
[2023-10-09] MEDS: Lidocaine 2% (20 ml mdv) 20 ML Vial INFILT (13:35)
--- NOTE | 2023-10-09 14:15 | PCM.OP.PRO ---
Procedure Report Date of Procedure: 10/09/23 Assessment & Plan Assessment/Plan (1) Ascites: QUALIFIERS: Ascites type: other type Qualified Code(s): R18.8 - Other ascites PLAN: PROCEDURE: Ultrasound guided paracentesis ORDERING PROVIDER: Dr. Serena Ross INDICATION: Male, 87 years old. Ascites. PROVIDER: RUSLAN Baker TECHNIQUE: The risks, benefits, and alternatives to the procedure were explained to the patient. The specific risks of bleeding, infection, and damage to bowel were detailed and accepted. Witnessed informed consent was obtained. The abdomen was ultrasonographically surveyed. An appropriate pocket of fluid was identified in the right lower quadrant. The skin was prepped with chlorhexidine and sterile field established. 2% lidocaine was used for local anesthetic. Using ultrasound guidance, the peritoneal cavity was accessed with a 5-Sinhala paracentesis needle/catheter system. The trocar was removed. A total of 4100 ml of clear red colored fluid was removed from the peritoneal cavity. 100 mL of this fluid was collected and sent to the laboratory for analysis. The catheter was removed and a sterile dressing was applied. The procedure was well tolerated. IMPRESSION: Successful ultrasound-guided paracentesis with right lower quadrant access site. Procedures Radiology Radiology US Procedures: 29007 Paracentesis
--- NOTE | 2023-10-09 14:33 | CHAPLAIN ---
Type of Pastoral Visit _x__ Initial Visit ___ Follow-up Visit ___ On-call Visit ___ General Patient Visit ___ Spiritual Assessment ___ Family Conference ___ Bereavement ___ Rapid Response ___ Code Blue ___ Other (describe below) Pastoral Care Referral From _x__ Patient ___ Family ___ Nurse ___ Physician ___ Airplane Fueler ___ Family Preservation Caseworker ___ Other (describe below) Sacrament/Intervention _x__ Active listening ___ Anointing ___ Sikh ___ Bereavement ___ Communion _x__ Chastity exploration ___ _x__ Life review _x__ Prayer ___ Reconciliation ___ Sacrament of Sick _x__ Supportive presence ___ Wedding ___ Other (describe below) Pastoral Comments patient is sitting up in the chair and states that he is doing pretty well; pt also admits that he has had lots of physical problems and has been in various hospitals for much of last several weeks; pt speaks of his granddaughter who lives with him and the vani he has with her; pt states that prayer would be helpful for him; otherwise pt could not think of anything else he needed
[2023-10-09 14:54] LABS: Cytology, Body Fluid / CSF SEE PATHOLOGY REPORT
--- NOTE | 2023-10-09 16:25 | NURSING ---
report called to KIM Daly RN
[2023-10-09 16:40] LABS: Glucose, Body Fluid 153 mg/dL (40-70); LDH,Body Fluid 91 Units/L (Not Establ.); Protein, Body Fluid 1.7 g/dL (Not Establ.)
[2023-10-09] MEDS: Enoxaparin 40 MG/0.4 ML Syringe SC (17:26)
[2023-10-09 17:57] LABS: Appearance/Body Fluid CLOUDY; Auto B Fluid Analyzer BKGD Ct COUNTS W/IN LIMITS (W/IN LIMITS); Color/Body Fluid RED; Source- Body Fluid PARACENTESIS
[2023-10-09 17:58] LABS: Body Fluid Mononuclear WBC # 0.306 10^3/uL; Body Fluid Polynuclear WBC # 0.151 10^3/uL; Body Fluid Total Cells Counted 0.551 10^3/ul; Red Cell Count/Body Fluid 0.047 10^6/ul; White Blood Count/Body Fluid 0.457 10^3/uL
[2023-10-09 18:16] LABS: Lymphocytes 12 %; Monocytes 45 %; Neutrophil (Segs) 36 %
[2023-10-09 18:17] LABS: Body Fluid QC Type(s) BF1Q; Macrophages 7 %
[2023-10-09] MEDS: Vancomycin HCl 1,250 MG in 0.9% Normal Saline (250mL Bag) 250 ML 167 MG IV (20:45)
[2023-10-09] MEDS: Lactobacillis Acidophilus 2 CAP PO (22:35)
[2023-10-09] MEDS: Lidocaine 5% 35GM Tube 1 APPLIC TOPICAL (23:04)
[2023-10-10 03:37] VITALS: BP 121/70; PULSE 83; RESP 24; TEMP 36.5; O2SAT 96
[2023-10-10 05:00] VITALS: RESP 24; O2SAT 97
[2023-10-10] MEDS: Piperacil/Tazobactam 3.375 GM in 0.9% Normal Saline (50mL MB+) 50 ML IV ×3 (05:45→20:44)
[2023-10-10] MEDS: Lidocaine 5% 35GM Tube 1 APPLIC TOPICAL ×2 (05:46→16:21)
[2023-10-10 06:00] VITALS: BMI 25.8
[2023-10-10 07:25] LABS: Absolute Lymphocyte Count 0.63 X10^3/uL (0.83-4.51); Absolute Neutrophil Count 4.2 X10^3/uL (2.0-7.7); Basophil# 0.03 X10^3/uL; Basophil% 0.5 % (0-1); Eosinophil# 0.09 X10^3/uL; Eosinophils% 1.6 % (0-5); Hematocrit 34.3 % (40-54); Hemoglobin 10.7 g/dL (13.0-16.5); Lymphocyte # 0.63 X10^3/ul (0.83-4.51); Lymphocyte % 11.4 % (19-41); Mean Corp Hgb Conc 31.2 g/dL (32-36); Mean Corpuscular Hgb 30.2 pg (27.0-32.0); Mean Corpuscular Volume 96.9 fL (80-94); Mean Platelet Vol. 11.7 fl (6.2-12.0); Monocyte# 0.53 X10^3/uL; Monocyte% 9.6 % (0-10); NRBC Flagged by Analyzer 0 % (0-5); Neutrophil # 4.21 X10^3/uL (2.7-7.7); Neutrophil % 76.5 % (47-70); Platelet Count 114 K/mm3 (150-450); RBC Distribution Width CV 18.2 % (11.6-14.6); RBC Distribution Width SD 63.4 fl (35.1-43.9); Red Blood Count 3.54 M/mm3 (4.6-6.2); White Blood Count 5.5 K/mm3 (4.4-11.0)
[2023-10-10 07:33] LABS: ALB/GLOB Ratio 0.4 RATIO (0.9-2.4); AST(SGOT) 158 U/L (15-37); Alanine Aminotransfer ALT/SGPT 31 U/L (16-61); Albumin, Serum 1.6 g/dL (3.2-5.0); Alkaline Phosphatase 86 U/L (45-117); Anion Gap 7 (5-15); BUN 30 mg/dL (7-18); BUN/Creat Ratio 20.3 RATIO (10-20); Calcium,Total 8.3 mg/dL (8.5-10.1); Chloride 117 mmol/L (98-107); Creatinine, Serum 1.48 mg/dL (0.70-1.30); EST Glomerular Filtration Rate 48 mL/min (>60); Est Glom Filt Rate - Afr Amer 58 mL/min (>60); Globulin 4.2 g/dL (2.2-4.2); Glucose 108 mg/dL (74-106); Potassium 3.6 mmol/L (3.5-5.1); Protein, Total 5.8 g/dL (6.4-8.2); Sodium Level 147 mmol/L (136-145)
[2023-10-10 08:24] VITALS: BP 134/72; PULSE 78; RESP 18; TEMP 36.3; O2SAT 98
[2023-10-10] MEDS: Pantoprazole Sodium 40 MG in 0.9% Normal Saline (100mL MB+) 100 ML 330 MG IV (09:30)
[2023-10-10] MEDS: Tamsulosin HCl 0.4 MG Capsule PO (09:31)
[2023-10-10] MEDS: Aspirin E.C. 81 MG Tablet PO (09:31)
[2023-10-10] MEDS: Lactobacillis Acidophilus 2 CAP PO ×2 (09:31→20:46)
--- NOTE | 2023-10-10 13:23 | CASEMGMT ---
Social Work- A list of SNF providers including quality and resource use data and consistent with the patient?s preferred geographic region, medical needs, and insurance network were provided from the [employer] Guide for pt and family review. TONNY Dc
--- NOTE | 2023-10-10 13:33 | CASEMGMT ---
Social Work- SW attempted to call dtr at number listed in the chart ([phone]). SW received a message that the voicemail box was not set up. SW called son-in-law's number listed in the chart ([phone]) and received a voicemail message. SW will follow up via telephone to discuss SNF list. TONNY Grossman
[2023-10-10] MEDS: 0.9% Saline Lock 10 ML Syringe IV (14:13)
[2023-10-10 14:15] VITALS: BP 112/66; PULSE 98; RESP 14; TEMP 36.5; O2SAT 97
[2023-10-10 15:20] LABS: Pathologist Comment/Body Fluid Reviewed
--- NOTE | 2023-10-10 15:53 | PCM.PN.HOSP ---
Reason for Visit Reason for Visit: Nausea/vomiting/generalized weakness Subjective Subjective No issues overnight. Patient tolerated clear liquid diet without a problem. We did advance his diet to regular diet today and he had an emesis after eating applesauce and a banana. 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 Had a long conversation with his son-in-law who is listed as the primary contact and discussed the findings with him. They are going to decide whether they would like to pursue aggressive treatment with diagnosis involving CT-guided biopsy or whether they would pursue hospice. He indicated he will get back to me later today. We did discuss that his overall prognosis especially with his baseline dysfunction and comorbidities is likely very poor. His son-in-law does indicate that he does have good and bad days with regards to his memory but his short-term memory is extremely poor. He does not think they would able to do hospice at home and would neither need the IPU or skilled nursing hospice depending on qualifications. Objective Data Objective Data Vital Signs: Vital Signs Temp Pulse Resp BP Pulse Ox O2 Del Method 97.7 F L 98 14 112/66 97 Room Air 10/10/23 14:15 10/10/23 14:15 10/10/23 14:15 10/10/23 14:15 10/10/23 14:15 10/10/23 14:15 Oxygen Delivery Method Room Air Weight: 86.5 kg Body Mass Index (BMI) 25.8 Intake & Output: Intake and Output for Last 24 Hours 10/08/23 10/09/23 10/10/23 23:59 23:59 23:59 Intake Total 2482.95 / 2582.95 1948.75 / 1948.75 1730 / 1730 Output Total 4800 / 4800 550 / 550 Balance 2482.95 / 2582.95 -2851.25 / -2851.25 1180 / 1180 Lab / Micro Data 10/10/23 06:12 10/10/23 06:12 Labs: Laboratory Results - last 24 hr 10/08/23 18:33: Urine Color Ani, Urine Clarity Clear, Urine pH 5.0, Ur Specific [place] 1.020, Urine Protein 30 H, Urine Glucose (UA) Normal, Urine Ketones 5 H, Urine Occult Blood 50 H, Urine Nitrite Negative, Urine Bilirubin 1 H, Urine Urobilinogen 8 H, Ur Leukocyte Esterase 25 H, Urine RBC 0-5 SEEN, Urine WBC 0 SEEN, Ur Squamous Epith Cells 0-5 SEEN, Urine Bacteria RARE, Urine Mucus 0 SEEN 10/09/23 13:40: Fluid Glucose 153 H, Fluid Total Protein 1.7, Fluid LDH 91 10/09/23 14:18: Fluid Source PARACENTESIS, Fluid Color RED, Fluid Appearance CLOUDY, Fluid WBC 0.457, Fluid RBC 0.047, Fluid Tot Cell Count 0.551, Fld Polynuclear WBCs # 0.151, Fld Polynuclear WBCs % 33.0, Fluid Mononuclear WBCs 0.306, Fld Mononuclear WBCs % 67.0, Fluid Neutrophils 36, Fluid Lymphocytes 12, Fluid Monocytes 45, Fluid Macrophages 7, Fl Pathologist Comment Reviewed, Fluid Comment 2 SEE COMMENT 10/10/23 06:12: WBC 5.5, RBC 3.54 L, Hgb 10.7 L, Hct 34.3 L, MCV 96.9 H, MCH 30.2, MCHC 31.2 L, RDW Std Deviation 63.4 H, RDW Coeff of Netta 18.2 H, Plt Count 114 L, MPV 11.7, Immature Gran % (Auto) 0.400, Neut % (Auto) 76.5 H, Lymph % (Auto) 11.4 L, Floyd % (Auto) 9.6, Eos % (Auto) 1.6, Baso % (Auto) 0.5, Absolute Neuts (auto) 4.2, Absolute Lymphs (auto) 0.63 L, Nucleated RBC % 0, Sodium 147 H, Potassium 3.6, Chloride 117 H, Carbon Dioxide 23.0, Anion Gap 7, BUN 30 H, Creatinine 1.48 H, Estim Creat Clear Calc 38.60, Est GFR (MDRD) Af Amer 58 L, Est GFR (MDRD) Non-Af 48 L, BUN/Creatinine Ratio 20.3 H, Glucose 108 H, Calcium 8.3 L, Total Bilirubin 3.00 H, AST 158 H, ALT 31, Alkaline Phosphatase 86, Total Protein 5.8 L, Albumin 1.6 L, Globulin 4.2, Albumin/Globulin Ratio 0.4 L Micro: Microbiology 10/10/23 13:40 Stool Clostridioides difficile (PCR) - Final 10/08/23 18:33 Urine Catheter - [place] Urine Culture - Preliminary Escherichia coli Gram negative manuel 10/09/23 14:18 Fluid - Paracentesis (Abd) Gram Stain - Final 10/08/23 22:20 Mucosa - Nasopharyngeal SARS-CoV-2, Influenza & RSV (PCR) - Final 10/08/23 18:33 Urine Catheter - [place] Legionella Antigen - Final 10/08/23 18:33 Urine Catheter - [place] Streptococcus pneumoniae Antigen (M - Final Radiography Diagnostic Testing: Radiology Impression Abdomen MRI 10/09/23 07:40 IMPRESSION: 1. 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 2. 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 Electronically Signed: Eren Peterson MD at 17:07 EDT , Physical Exam Const alert, no apparent distress and average body habitus; Negative for healthy appearing or well nourished Constitutional Narrative: Elderly, white male, sitting up in bed, nursing at bedside, patient appears comfortable, nontoxic, oriented only to self Orientation / Consciousness: confused HEENT head/scalp atraumatic and moist oral mucous membranes HEENT Narrative: Dentition is poor, Mallampati is 2, no thrush Head and Scalp: normocephalic Eyes PERRL, EOMs intact bilaterally and conjunctivae normal Eyes Narrative: No scleral icterus Neck no lymphadenopathy and supple Neck Narrative: Trachea midline, no thyroid enlargement Resp normal respiratory effort, no retractions, no use of accessory muscles and clear to auscultation bilaterally Auscultation: Negative for crackles, rhonchi or wheezes Cardio regular rate, regular rhythm, S1 normal heart sound, S2 normal heart sound, no murmurs, no rub, no gallops and no clicks GI GI Narrative: Distention has resolved, hepatomegaly noted, bowel sounds are normal, abdomen is soft and nontender Extremity Extremity Narrative: Trace bilateral lower extremity edema, pedal pulses are 2+ bilaterally, no cyanosis or clubbing Skin No no rashes or lesions noted, No no wounds, skin turgor normal, No no jaundice, no petechiae and no mottling Skin Narrative: Skin is thin and fragile with few scattered ecchymosis Neuro No oriented x3, CN's II-XII intact bilaterally and moves all extremities Neuro Narrative: Significant generalized weakness noted-proximal greater than distal with no focal deficits Sensorium / Orientation: awake, alert and oriented to person Speech: speech normal Psych affect normal Psych Narrative: Very pleasantly confused Assessment & Plan Assessment/Plan (1) Ascites: QUALIFIERS: Ascites type: other type Qualified Code(s): R18.8 - Other ascites (2) Nausea and vomiting: QUALIFIERS: Vomiting type: unspecified Qualified Code(s): R11.2 - Nausea with vomiting, unspecified (3) Ambulatory dysfunction: (4) Generalized weakness: (5) Sepsis: QUALIFIERS: Sepsis type: sepsis due to unspecified organism Sepsis acute organ dysfunction status: unspecified Qualified Code(s): A41.9 - Sepsis, unspecified organism (6) Abnormal CT of liver: (7) Thrombocytopenia: (8) Anemia: (9) Lactic acidosis: (10) Elevated serum creatinine: (11) Hyperbilirubinemia: (12) Toxic metabolic encephalopathy: PLAN: Plan 12 cm liver mass -In the setting of cirrhosis highly suspicious for hepatocellular carcinoma -Associated with 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 -AFP is pending -Overall prognosis of poor alone without his comorbidities and compromised functional status -I did discuss this with his son-in-law Eren who is listed as primary contact--> will discuss with the rest of his family and decide how they would like to proceed--> I told him his options are aggressive management with CT-guided biopsy and staging or hospice -They will get back to me tomorrow 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 difficile is negative -Highly suspect it is related to his above liver tumor and its location in relation to his small bowel and stomach -Add supplements Left-sided pleural effusion -I reviewed the images and the consolidation is highly suggestive of compressive atelectasis related to his pleural effusion -Has large volume ascites which is probably the etiology of his effusion -Breath sounds in the lung base on the left were improved today after paracentesis yesterday -Monitor clinically -Patient is not requiring any supplemental oxygen Ascites -Paracentesis done yesterday for removal of 4100 cc of clear/reddish colored fluid -Cultures and cytology are pending -Continue antibiotics until cultures are resulted -Blood and urine cultures have been and are pending -Patient does not meet Sep 3 criteria for sepsis Elevated serum creatinine -Patient's overall serum creatinine is stable despite hydration highly suspect we are at his current baseline which would be him having CKD stage IIIb -Continue to monitor -Will stop IV fluids for now as he is tolerating clear liquid diet and fluids Toxic/metabolic encephalopathy -Hepatic encephalopathy ruled out with a normal ammonia -Seems to be close to his baseline per discussion with family Lactic acidosis -Resolved Hyperbilirubinemia -Baseline is unknown but highly suspect it is related to his baseline cirrhosis and hepatocellular carcinoma -Will continue to follow Thrombocytopenia -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 if drops any further may need further workup if family wants aggressive management Essential hypertension -Blood pressures are still on the soft side will continue to hold antihypertensives -At baseline he is on Lasix as needed and Aldactone Hyperlipidemia -Continue home atorvastatin BPH with obstruction/history of prostate cancer -Continue home Flomax GERD -Continue home PPI History of pancreatitis -Suspect alcohol related with his history -Lipase was normal on presentation and CT does not show any evidence of pancreatitis CAD/history of stroke -Previous CABG x 3 -Cardiac enzymes are unremarkable -Continue home aspirin DVT prophylaxis -Patient was given Lovenox 90 mg x 1 dose due to portal vein thrombus CODE STATUS -DNR CCA with no intubation per family Charges/Coding Visit Charges Inpatient E&M: 62300 [facility] Hosp L3
--- NOTE | 2023-10-10 15:53 | CASEMGMT ---
Social Work- SW called dtr x2. SW was able to leave a message the second time. SW left the generated list in pt room as communicated to dtr in message and will plan to follow up tomorrow with dtr. TONNY Dc
[2023-10-10] MEDS: Enoxaparin 100 MG/ML Syringe 90 MG SC (16:20)
[2023-10-10] MEDS: Ensure Clear 120 ML Liquid PO ×2 (17:01→20:49)
[2023-10-10 20:45] VITALS: BP 114/69; PULSE 95; RESP 20; TEMP 36.2; O2SAT 98
[2023-10-10] MEDS: Menthol/Lanolin/Calamine/Znox 113 GM Tube 1 APPLIC TOPICAL (20:45)
[2023-10-10 22:14] LABS: Vancomycin, Trough Level 19.2 ug/mL (5.0-15.0)
[2023-10-10] MEDS: Vancomycin HCl 1,250 MG in 0.9% Normal Saline (250mL Bag) 250 ML 167 MG IV (22:45)
--- NOTE | 2023-10-10 22:47 | PCM.RX.CS ---
Consult Antibiotic Management Pharmacy has been consulted to manage selected antibiotic: Vancomycin Type of Intervention Type of Consult: Follow-up Suspected Infection Suspected Infection: Sepsis Labs Labs: Sodium 147 mmol/L (136-145) H 10/10/23 06:12 Potassium 3.6 mmol/L (3.5-5.1) 10/10/23 06:12 Chloride 117 mmol/L (98-107) H 10/10/23 06:12 Carbon Dioxide 23.0 mmol/L (21.0-32.0) 10/10/23 06:12 Anion Gap 7 (5-15) 10/10/23 06:12 BUN 30 mg/dL (7-18) H 10/10/23 06:12 Creatinine 1.48 mg/dL (0.70-1.30) H 10/10/23 06:12 Est GFR (MDRD) Af Amer 58 mL/min (>60) L 10/10/23 06:12 Est GFR (MDRD) Non-Af 48 mL/min (>60) L 10/10/23 06:12 BUN/Creatinine Ratio 20.3 RATIO (10-20) H 10/10/23 06:12 Glucose 108 mg/dL (74-106) H 10/10/23 06:12 Vancomycin Trough 19.2 ug/mL (5.0-15.0) H 10/10/23 21:30 Microbiology Microbiology: Microbiology 10/10/23 13:40 Stool Clostridioides difficile (PCR) - Final 10/08/23 18:33 Urine Catheter - [place] Urine Culture - Preliminary Escherichia coli Gram negative manuel 10/09/23 14:18 Fluid - Paracentesis (Abd) Gram Stain - Final 10/08/23 22:20 Mucosa - Nasopharyngeal SARS-CoV-2, Influenza & RSV (PCR) - Final 10/08/23 18:33 Urine Catheter - [place] Legionella Antigen - Final 10/08/23 18:33 Urine Catheter - [place] Streptococcus pneumoniae Antigen (M - Final Dosing Weight Weight used for dosin.5 kg Estimated Creatinine Clearance Estimated Creatinine Clearance: 39 Goal Trough Goal Trough: 15-20 mcg/mL Pharmacy Plan for Drug Dosing Pharmacy Plan for Drug Dosing: Vancomycin trough level of 19.2, drawn 12.75hrs post-dose, was within the target range of 15-20. Will continue dosing at 1250mg q24h, and will draw another trough level in two days. Pharmacy Service will continue to monitor and adjust dosing as required. Follow-Up Labs Follow-Up Labs: Trough: Vancomycin Date/Time Labs Ordered Labs to be done on [date and time ordered]: 10/12/23 @4362
[2023-10-11 03:00] VITALS: BP 114/74; PULSE 93; RESP 18; TEMP 36.1; O2SAT 100
[2023-10-11] MEDS: Lidocaine 5% 35GM Tube 1 APPLIC TOPICAL ×2 (05:15→21:53)
[2023-10-11] MEDS: Piperacil/Tazobactam 3.375 GM in 0.9% Normal Saline (50mL MB+) 50 ML IV (05:15)
[2023-10-11 06:00] VITALS: BMI 26.4
[2023-10-11 06:57] LABS: Absolute Lymphocyte Count 0.83 X10^3/uL (0.83-4.51); Absolute Neutrophil Count 5.4 X10^3/uL (2.0-7.7); Basophil# 0.04 X10^3/uL; Basophil% 0.6 % (0-1); Eosinophil# 0.13 X10^3/uL; Eosinophils% 1.8 % (0-5); Hematocrit 35.2 % (40-54); Lymphocyte # 0.83 X10^3/ul (0.83-4.51); Lymphocyte % 11.7 % (19-41); Mean Corp Hgb Conc 31.3 g/dL (32-36); Mean Corpuscular Hgb 29.7 pg (27.0-32.0); Mean Corpuscular Volume 95.1 fL (80-94); Mean Platelet Vol. 11.5 fl (6.2-12.0); Monocyte# 0.62 X10^3/uL; Monocyte% 8.7 % (0-10); NRBC Flagged by Analyzer 0 % (0-5); Neutrophil # 5.44 X10^3/uL (2.7-7.7); Neutrophil % 76.5 % (47-70); Platelet Count 135 K/mm3 (150-450); White Blood Count 7.1 K/mm3 (4.4-11.0)
[2023-10-11 07:51] LABS: ALB/GLOB Ratio 0.4 RATIO (0.9-2.4); AST(SGOT) 178 U/L (15-37); Alanine Aminotransfer ALT/SGPT 39 U/L (16-61); Albumin, Serum 1.7 g/dL (3.2-5.0); Alkaline Phosphatase 101 U/L (45-117); Anion Gap 7 (5-15); BUN 26 mg/dL (7-18); BUN/Creat Ratio 16.5 RATIO (10-20); Calcium,Total 8.7 mg/dL (8.5-10.1); Chloride 116 mmol/L (98-107); Creatinine, Serum 1.58 mg/dL (0.70-1.30); EST Glomerular Filtration Rate 44 mL/min (>60); Est Glom Filt Rate - Afr Amer 54 mL/min (>60); Estimated Creatinine Clearance 36.15 ml/min; Globulin 4.6 g/dL (2.2-4.2); Glucose 112 mg/dL (74-106); Magnesium 2.3 mg/dL (1.6-2.6); Phosphorus 2.6 mg/dL (2.5-4.9); Potassium 3.2 mmol/L (3.5-5.1); Protein, Total 6.3 g/dL (6.4-8.2); Sodium Level 143 mmol/L (136-145)
[2023-10-11 09:18] VITALS: BP 107/53; PULSE 85; RESP 22; TEMP 36.2; O2SAT 100
[2023-10-11] MEDS: Pantoprazole Sodium 40 MG in 0.9% Normal Saline (100mL MB+) 100 ML 330 MG IV (09:19)
[2023-10-11] MEDS: Ensure Clear 120 ML Liquid PO ×3 (09:25→21:52)
[2023-10-11] MEDS: Aspirin E.C. 81 MG Tablet PO ×2 (11:26)
[2023-10-11] MEDS: Lactobacillis Acidophilus 2 CAP PO (11:26)
[2023-10-11] MEDS: Potassium Chloride Oral Soln 20 MEQ/15 ML UDC 40 MEQ PO (11:27)
[2023-10-11] MEDS: Tamsulosin HCl 0.4 MG Capsule PO (11:27)
[2023-10-11] MEDS: Menthol/Lanolin/Calamine/Znox 113 GM Tube 1 APPLIC TOPICAL ×2 (11:37→21:52)
[2023-10-11 13:57] VITALS: O2SAT 96
[2023-10-11 14:00] VITALS: BP 107/63; PULSE 101; RESP 20; TEMP 36.5; O2SAT 98
--- NOTE | 2023-10-11 16:39 | PN.HOSP_ITS ---
Reason for Visit Reason for Visit: Nausea/vomiting/generalized weakness Subjective Subjective Emesis yesterday so we did transition his diet back to clear liquids and he did fine. Will transition to full liquids and see how he tolerates. No significant issues overnight. Objective Data Objective Data Vital Signs: Vital Signs Temp Pulse Resp BP Pulse Ox O2 Del Method 97.7 F L 101 H 20 H 107/63 98 Room Air 10/11/23 14:00 10/11/23 14:00 10/11/23 14:00 10/11/23 14:00 10/11/23 14:00 10/11/23 14:00 Oxygen Delivery Method Room Air Weight: 88.5 kg Body Mass Index (BMI) 26.4 Intake & Output: Intake and Output for Last 24 Hours 10/09/23 10/10/23 10/11/23 23:59 23:59 23:59 Intake Total 1948.75 / 1948.75 1780 / 2140 1085 / 1085 Output Total 4800 / 4800 550 / 550 Balance -2851.25 / -2851.25 1230 / 1590 1085 / 1085 Lab / Micro Data 10/11/23 06:47 10/11/23 06:47 Labs: Laboratory Results - last 24 hr 10/09/23 14:18: Miscellaneous Cytology SEE PATHOLOGY REPORT 10/10/23 21:30: Vancomycin Trough 19.2 H 10/11/23 06:47: WBC 7.1, RBC 3.70 L, Hgb 11.0 L, Hct 35.2 L, MCV 95.1 H, MCH 29.7, MCHC 31.3 L, RDW Std Deviation 61.0 H, RDW Coeff of Netta 18.0 H, Plt Count 135 L, MPV 11.5, Immature Gran % (Auto) 0.700, Neut % (Auto) 76.5 H, Lymph % (Auto) 11.7 L, [place] % (Auto) 8.7, Eos % (Auto) 1.8, Baso % (Auto) 0.6, Absolute Neuts (auto) 5.4, Absolute Lymphs (auto) 0.83, Nucleated RBC % 0, Sodium 143, Potassium 3.2 L, Chloride 116 H, Carbon Dioxide 20.0 L, Anion Gap 7, BUN 26 H, Creatinine 1.58 H, Estim Creat Clear Calc 36.15, Est GFR (MDRD) Af Amer 54 L, Est GFR (MDRD) Non-Af 44 L, BUN/Creatinine Ratio 16.5, Glucose 112 H, Calcium 8.7, Phosphorus 2.6, Magnesium 2.3, Total Bilirubin 2.30 H, AST 178 H, ALT 39, Alkaline Phosphatase 101, Total Protein 6.3 L, Albumin 1.7 L, Globulin 4.6 H, Albumin/Globulin Ratio 0.4 L Micro: Microbiology 10/08/23 18:40 Blood Culture (Wb) - No Site/Description Given Blood Culture - Preliminary No growth in 48 hours. 10/08/23 18:15 Blood Culture (Wb) - Anticubital Right Blood Culture - Preliminary No growth in 48 hours. 10/09/23 14:18 Fluid - Paracentesis (Abd) Gram Stain - Final 10/09/23 14:18 Fluid - Paracentesis (Abd) Anaerobic Culture - Preliminary No growth in 48 hours. 10/08/23 18:33 Urine Catheter - [place] Urine Culture - Final Escherichia coli Escherichia coli#2 10/10/23 13:40 Stool Clostridioides difficile (PCR) - Final 10/08/23 22:20 Mucosa - Nasopharyngeal SARS-CoV-2, Influenza & RSV (PCR) - Final 10/08/23 18:33 Urine Catheter - [place] Legionella Antigen - Final 10/08/23 18:33 Urine Catheter - [place] Streptococcus pneumoniae Antigen (M - Final Physical Exam Const alert, no apparent distress and average body habitus; Negative for healthy appearing or well nourished Constitutional Narrative: Elderly, white male, sitting up in bed, lying in bed napping but awakens easily, patient appears comfortable, nontoxic, oriented only to self Orientation / Consciousness: confused HEENT head/scalp atraumatic and moist oral mucous membranes HEENT Narrative: Dentition is poor, Mallampati is 2, no thrush, significant temporal wasting Eyes PERRL, EOMs intact bilaterally and conjunctivae normal Eyes Narrative: No scleral icterus Neck no lymphadenopathy and supple Neck Narrative: Trachea midline, no thyroid enlargement Resp normal respiratory effort, no retractions, no use of accessory muscles and clear to auscultation bilaterally Auscultation: Negative for crackles, rhonchi or wheezes Cardio regular rate, regular rhythm, S1 normal heart sound, S2 normal heart sound, no murmurs, no rub, no gallops and no clicks GI GI Narrative: Fluid appears to have reaccumulated and fluid wave present, bowel sounds are normal, abdomen is soft with no focal tenderness Extremity Extremity Narrative: Trace bilateral lower extremity edema, pedal pulses are 2+ bilaterally, no cyanosis or clubbing, significantly reduced lean muscle mass Skin No no rashes or lesions noted, No no wounds, skin turgor normal, No no jaundice, no petechiae and no mottling Skin Narrative: Skin is thin and fragile with few scattered ecchymosis Neuro No oriented x3, moves all extremities and no focal motor deficits Neuro Narrative: Significant generalized weakness noted-proximal greater than distal with no focal deficits Sensorium / Orientation: awake, alert and oriented to person Speech: speech normal Psych affect normal Psych Narrative: Very pleasantly confused Assessment & Plan Assessment/Plan (1) Ascites: QUALIFIERS: Ascites type: other type Qualified Code(s): R18.8 - Other ascites (2) Nausea and vomiting: QUALIFIERS: Vomiting type: unspecified Qualified Code(s): R11.2 - Nausea with vomiting, unspecified (3) Ambulatory dysfunction: (4) Generalized weakness: (5) Sepsis: QUALIFIERS: Sepsis type: sepsis due to unspecified organism Sepsis acute organ dysfunction status: unspecified Qualified Code(s): A41.9 - Sepsis, unspecified organism (6) Abnormal CT of liver: (7) Thrombocytopenia: (8) Anemia: (9) Lactic acidosis: (10) Elevated serum creatinine: (11) Hyperbilirubinemia: (12) Toxic metabolic encephalopathy: PLAN: Plan 12 cm liver mass -In the setting of cirrhosis highly suspicious for hepatocellular carcinoma -Associated with 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 Many of his questions were related to hospice care. Hospice consult was placed and they should call him later today and likely set up meeting for tomorrow. It sounds as if they would like to hospice in the home if at all possible. 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 -Associated with poor prognosis in the setting of hepatocellular carcinoma -Will defer any further treatment given the fact that hospice has been consulted and plan is for discharge home with hospice care Intractable nausea and vomiting -Has been ongoing and problematic at home -Patient has had considerable weight loss -Suspect related to the above liver mass and possibly intermittent compression either on the small bowel or stomach -Will transition to full liquid diet and continue supplements -Monitor for tolerance Constipation -Will add scheduled MiraLAX and Colace -Monitor stool output Left-sided pleural effusion -I reviewed the images and the consolidation is highly suggestive of compressive atelectasis related to his pleural effusion -Has large volume ascites which is probably the etiology of his effusion -Breath sounds in the lung base on the left were improved today after paracentesis yesterday -Monitor clinically -Patient is not requiring any supplemental oxygen Ascites -Paracentesis done yesterday for removal of 4100 cc of clear/reddish colored fluid -Cultures are negative -Cytology is pending -Fluid is already reaccumulating but patient does not appear to be uncomfortable with regards to this -If discomfort related to ascites develops could consider diverting placement with him pursuing hospice Severe malnutrition -Considerable weight loss per family -Ongoing issues with nausea and vomiting at home -Continue as needed antiemetics -Liberalize diet as patient can tolerate -Patient with marked temporal wasting and decreasing muscle mass with decree strength -Hospice is being pursued CKD stage IIIb -Stable Toxic/metabolic encephalopathy -Hepatic encephalopathy ruled out with a normal ammonia -Seems to be close to his baseline per discussion with family -Acute issues resolved Hyperbilirubinemia -Baseline is unknown but highly suspect it is related to his baseline cirrhosis and hepatocellular carcinoma -Will continue to follow Thrombocytopenia -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 -Stable Mild anemia -Stable Essential hypertension -Continue to hold antihypertensives -Will likely add Lasix at discharge if blood pressure can tolerate to assist with ascites and patient comfort Hyperlipidemia -Discontinue with transition to hospice BPH with obstruction/history of prostate cancer -Continue home Flomax GERD -Continue home PPI History of pancreatitis -Suspect alcohol related with his history -Lipase was normal on presentation and CT does not show any evidence of pancreatitis CAD/history of stroke -Previous CABG x 3 -Discontinue with transition to hospice DVT prophylaxis -Lovenox 40 daily CODE STATUS -DNR CCA with no intubation per family Disposition: Lengthy conversation with patient's son-in-law Eren who is representing the family. He is talk to the rest of his family and they would like to pursue hospice and no aggressive treatment given his age, comorbidities, and current diagnosis. They state with they would like to keep him comfortable and take him home if at all possible. Answered all questions as able however many of his questions were pertaining to hospice. Hospice consult was placed and I informed him they will call to set up a meeting time. He was concerned that we would have to discharge him sooner than later however I told him we would not discharge him until everything can be arranged and set up by hospice. Son-in-law appreciative of care and conversation. Charges/Coding Visit Charges Inpatient E&M: 24406 Subs Hosp L3
[2023-10-11 21:46] VITALS: BP 144/104; PULSE 92; RESP 18; TEMP 37; O2SAT 97
[2023-10-12 03:38] VITALS: BP 129/105; PULSE 96; RESP 18; TEMP 36.5; O2SAT 100
[2023-10-12 04:15] VITALS: BMI 26.9
[2023-10-12] MEDS: Lidocaine 5% 35GM Tube 1 APPLIC TOPICAL ×2 (05:32→14:11)
[2023-10-12 07:15] LABS: Absolute Lymphocyte Count 1.03 X10^3/uL (0.83-4.51); Absolute Neutrophil Count 6.4 X10^3/uL (2.0-7.7); Basophil# 0.05 X10^3/uL; Basophil% 0.6 % (0-1); Eosinophil# 0.21 X10^3/uL; Eosinophils% 2.5 % (0-5); Hematocrit 36.7 % (40-54); Hemoglobin 11.4 g/dL (13.0-16.5); Lymphocyte # 1.03 X10^3/ul (0.83-4.51); Lymphocyte % 12.1 % (19-41); Mean Corp Hgb Conc 31.1 g/dL (32-36); Mean Corpuscular Hgb 29.8 pg (27.0-32.0); Mean Corpuscular Volume 96.1 fL (80-94); Mean Platelet Vol. 11.7 fl (6.2-12.0); Monocyte# 0.76 X10^3/uL; Monocyte% 8.9 % (0-10); NRBC Flagged by Analyzer 0 % (0-5); Neutrophil # 6.39 X10^3/uL (2.7-7.7); Neutrophil % 74.8 % (47-70); Platelet Count 166 K/mm3 (150-450); RBC Distribution Width CV 17.6 % (11.6-14.6); Red Blood Count 3.82 M/mm3 (4.6-6.2); White Blood Count 8.5 K/mm3 (4.4-11.0)
[2023-10-12 07:47] LABS: ALB/GLOB Ratio 0.3 RATIO (0.9-2.4); AST(SGOT) 368 U/L (15-37); Alanine Aminotransfer ALT/SGPT 67 U/L (16-61); Albumin, Serum 1.7 g/dL (3.2-5.0); Alkaline Phosphatase 123 U/L (45-117); Anion Gap 7 (5-15); BUN 28 mg/dL (7-18); Calcium,Total 8.9 mg/dL (8.5-10.1); Chloride 112 mmol/L (98-107); Creatinine, Serum 1.65 mg/dL (0.70-1.30); EST Glomerular Filtration Rate 42 mL/min (>60); Est Glom Filt Rate - Afr Amer 51 mL/min (>60); Estimated Creatinine Clearance 34.62 ml/min; Glucose 130 mg/dL (74-106); Potassium 3.4 mmol/L (3.5-5.1); Protein, Total 6.7 g/dL (6.4-8.2); Sodium Level 139 mmol/L (136-145)
--- NOTE | 2023-10-12 09:26 | CASEMGMT ---
Social Work SW spoke w/[facility], they will be here at 5pm to meet w/the family. JOSIE Todd
[2023-10-12 09:30] VITALS: BP 111/58; PULSE 98; RESP 16; TEMP 36.3; O2SAT 98
[2023-10-12] MEDS: Menthol/Lanolin/Calamine/Znox 113 GM Tube 1 APPLIC TOPICAL ×2 (09:30→21:10)
[2023-10-12] MEDS: Tamsulosin HCl 0.4 MG Capsule PO (09:31)
[2023-10-12] MEDS: Enoxaparin 40 MG/0.4 ML Syringe SC (09:31)
--- NOTE | 2023-10-12 13:24 | PN.HOSP_ITS ---
Reason for Visit Reason for Visit: Generalized weakness/nausea/vomiting Subjective Subjective No issues through the night. Hospice meeting tonight at 5 PM. Objective Data Objective Data Vital Signs: Vital Signs Temp Pulse Resp BP Pulse Ox O2 Del Method 97.4 F L 98 16 111/58 L 98 Room Air 10/12/23 09:30 10/12/23 09:30 10/12/23 09:30 10/12/23 09:30 10/12/23 09:30 10/12/23 09:30 Oxygen Delivery Method Room Air Weight: 89.9 kg Body Mass Index (BMI) 26.9 Intake & Output: Intake and Output for Last 24 Hours 10/10/23 10/11/23 10/12/23 23:59 23:59 23:59 Intake Total 1780 / 2140 1685 / 1685 480 / 480 Output Total 550 / 550 Balance 1230 / 1590 1685 / 1685 480 / 480 Lab / Micro Data 10/12/23 06:10 10/12/23 06:10 Labs: Laboratory Results - last 24 hr 10/12/23 06:10: WBC 8.5, RBC 3.82 L, Hgb 11.4 L, Hct 36.7 L, MCV 96.1 H, MCH 29.8, MCHC 31.1 L, RDW Std Deviation 61.0 H, RDW Coeff of Netta 17.6 H, Plt Count 166, MPV 11.7, Immature Gran % (Auto) 1.100 H, Neut % (Auto) 74.8 H, Lymph % (Auto) 12.1 L, [place] % (Auto) 8.9, Eos % (Auto) 2.5, Baso % (Auto) 0.6, Absolute Neuts (auto) 6.4, Absolute Lymphs (auto) 1.03, Nucleated RBC % 0, Sodium 139, Potassium 3.4 L, Chloride 112 H, Carbon Dioxide 20.0 L, Anion Gap 7, BUN 28 H, Creatinine 1.65 H, Estim Creat Clear Calc 34.62, Est GFR (MDRD) Af Amer 51 L, E st GFR (MDRD) Non-Af 42 L, BUN/Creatinine Ratio 17.0, Glucose 130 H, Calcium 8.9, Total Bilirubin 1.90 H, AST 368 H, ALT 67 H, Alkaline Phosphatase 123 H, Total Protein 6.7, Albumin 1.7 L, Globulin 5.0 H, Albumin/Globulin Ratio 0.3 L Micro: Microbiology 10/09/23 14:18 Fluid - Paracentesis (Abd) Gram Stain - Final 10/09/23 14:18 Fluid - Paracentesis (Abd) Body Fluid Culture - Final No growth aerobically. 10/09/23 14:18 Fluid - Paracentesis (Abd) Anaerobic Culture - Preliminary No growth in 48 hours. 10/08/23 18:40 Blood Culture (Wb) - No Site/Description Given Blood Culture - Preliminary No growth in 48 hours. 10/08/23 18:15 Blood Culture (Wb) - Anticubital Right Blood Culture - Preliminary No growth in 48 hours. 10/08/23 18:33 Urine Catheter - [place] Urine Culture - Final Escherichia coli Escherichia coli#2 10/10/23 13:40 Stool Clostridioides difficile (PCR) - Final 10/08/23 22:20 Mucosa - Nasopharyngeal SARS-CoV-2, Influenza & RSV (PCR) - Final 10/08/23 18:33 Urine Catheter - [place] Legionella Antigen - Final 10/08/23 18:33 Urine Catheter - [place] Streptococcus pneumoniae Antigen (M - Final Physical Exam Const no apparent distress and average body habitus; Negative for healthy appearing or well nourished Constitutional Narrative: Elderly, white male, lying in bed sleeping soundly, patient appears comfortable, nontoxic HEENT head/scalp atraumatic Head and Scalp: normocephalic Eyes Eyes Narrative: No scleral icterus Assessment & Plan Assessment/Plan (1) Ascites: QUALIFIERS: Ascites type: other type Qualified Code(s): R18.8 - Other ascites (2) Nausea and vomiting: QUALIFIERS: Vomiting type: unspecified Qualified Code(s): R11.2 - Nausea with vomiting, unspecified (3) Ambulatory dysfunction: (4) Generalized weakness: (5) Sepsis: QUALIFIERS: Sepsis type: sepsis due to unspecified organism Sepsis acute organ dysfunction status: unspecified Qualified Code(s): A41.9 - Sepsis, unspecified organism (6) Abnormal CT of liver: (7) Thrombocytopenia: (8) Anemia: (9) Lactic acidosis: (10) Elevated serum creatinine: (11) Hyperbilirubinemia: (12) Toxic metabolic encephalopathy: PLAN: Plan Assessment: 12 cm liver mass Portal vein thrombus Intractable nausea and vomiting Left-sided pleural effusion Ascites Severe malnutrition CKD stage IIIb Toxic/metabolic encephalopathy Hyperbilirubinemia Thrombocytopenia Mild anemia Essential hypertension Hyperlipidemia BPH with obstruction/history of prostate cancer GERD History of pancreatitis CAD/history of stroke Dementia Plan: -Continue bowel regimen as patient is finally had a bowel movement -Nonessential medications discontinued -Liberated diet as patient tolerates -AFP remains pending -Will give 40 mill colons p.o. potassium -CODE STATUS to DNR CC -Patient with worsening ascites--> does not appear to be impairing his comfort level at this time however if it does would consider Jd drain -Hospice meeting this evening at 5 PM -Will discharge to the location of their request however family is hoping he can go home Charges/Coding Visit Charges Inpatient E&M: 78909 [facility] Hosp L1
[2023-10-12] MEDS: Ensure Clear 120 ML Liquid PO (14:11)
[2023-10-12] MEDS: Potassium Chloride Oral Soln 20 MEQ/15 ML UDC 40 MEQ PO (14:11)
[2023-10-12 15:20] VITALS: BP 129/90; PULSE 99; RESP 18; TEMP 36.7; O2SAT 99
--- NOTE | 2023-10-12 18:29 | PCM.DC.SUM ---
Providers Date of Admission: 10/08/23 Date of Discharge: 10/12/23 Primary Care Physician: Dr. Montez Marshall MD Consultations 10/08/23 22:13 Consult: [employer] / Pulmonary Medicine Routine Consulting Provider: Int[facility]ivists/Pulmonary Med Reason for Consult: Sepsis with left pleural effusion and suspected pneumonia. EMERGENT Consult: No MD Notified: Yes Date Notified: 10/09/23 Time Notified: 06:50 Method of Notification: Text 10/11/23 16:34 Consult: Hospice / Palliative Care Routine Consulting Provider: [facility] Reason for Consult: liver cancer EMERGENT Consult: No MD Notified: Yes Date Notified: 10/11/23 Time Notified: 16:43 Method of Notification: Answering Service Reason For Visit: SEPSIS WITH SUSPECTED LEFT LOWER LOBE PNEUMONIA Diagnosis Discharge Diagnosis (1) Ascites: Status: Acute Code(s): R18.8 - Other ascites Qualifiers: Ascites type: other type Qualified Code(s): R18.8 - Other ascites (2) Nausea and vomiting: Status: Acute Code(s): R11.2 - Nausea with vomiting, unspecified Qualifiers: Vomiting type: unspecified Qualified Code(s): R11.2 - Nausea with vomiting, unspecified (3) Ambulatory dysfunction: Status: Acute Code(s): R26.2 - Difficulty in walking, not elsewhere classified (4) Generalized weakness: Status: Acute Code(s): R53.1 - Weakness (5) Sepsis: Status: Ruled-out Code(s): A41.9 - Sepsis, unspecified organism Qualifiers: Sepsis acute organ dysfunction status: unspecified Sepsis type: sepsis due to unspecified organism Qualified Code(s): A41.9 - Sepsis, unspecified organism (6) Abnormal CT of liver: Status: Acute Code(s): R93.2 - Abnormal findings on diagnostic imaging of liver and biliary tract (7) Thrombocytopenia: Status: Acute Code(s): D69.6 - Thrombocytopenia, unspecified (8) Anemia: Status: Acute Code(s): D64.9 - Anemia, unspecified (9) Lactic acidosis: Status: Acute Code(s): E87.20 - Acidosis, unspecified (10) Elevated serum creatinine: Status: Acute Code(s): R79.89 - Other specified abnormal findings of blood chemistry (11) Hyperbilirubinemia: Status: Acute Code(s): E80.6 - Other disorders of bilirubin metabolism (12) Toxic metabolic encephalopathy: Status: Acute Code(s): G92.8 - Other toxic encephalopathy Medications at Discharge Home Medications docusate sodium 100 mg capsule 100 mg PO DAILY PRN stool softener 10/08/23 furosemide 20 mg tablet 20 mg PO DAILY PRN edema 10/08/23 hydrocortisone 2.5 % topical cream with perineal applicator (Procto-Med HC) 1 applic DE BID PRN skin irritation 10/08/23 lidocaine 5 % topical ointment 1 applic topical TID 10/08/23 pantoprazole 40 mg tablet,delayed release 40 mg PO DAILY 10/08/23 Hospital Course Procedures Paracentesis and - (CT abdomen/pelvis/chest x-ray/abdominal MRI) Summary of Care Provided Minutes Spent on Discharge: 30 Hospital Course: Mr. Colmenares is an 87-year-old white male with a complicated past medical history who presented to the emergency department at [facility] on 10/08/2023 with nausea, vomiting, and generalized weakness. Per documentation, the patient lives [place]-door to his son-in-law who is also his DPOA for healthcare and he informed the ER staff that the patient has had nausea and vomiting for about 4 days prior to presentation. They tried to get him up out of bed on the day of presentation and he was so much weaker than his baseline and unable to assist them in transferring him out of bed. He slid out of bed onto the floor despite the assistance of family. The son-in-law also reported that he had about 20 episodes of bilious vomitus on the day prior to presentation with no hematemesis noted. He had no injuries with sliding to the floor. Upon presentation his temperature was 98.3, heart rate 102, blood pressure was 108/83, respiratory rate 16 and oxygen saturations were 94% on room air. CBC on presentation showed a white count of 11.1 with a left shift having an 84.5% neutrophilia. Hemoglobin and platelet counts were normal. Coags were slightly abnormal with a mildly elevated PT at 16.6 and an INR of 1.3. He is not on anticoagulation. His chemistry panel showed normal electrolytes but his serum BUN and creatinine were elevated at 29 and 1.65 respectively. Baseline is unknown. Lactic acid was 4.1 with a repeat of 2.4. His alkaline phosphatase was 1.38, ALT was 43, AST was 268 and total bilirubin was 4.7. Cardiac enzymes were normal at 16 x 2. His ammonia level was 15. Procalcitonin was 0.51 but I am unclear as what to make of this in the setting of NARENDRA versus CKD. His UA was not suggestive of infection but did have some occult blood. Rapid COVID/flu/RSV was unremarkable. Strep pneumo and Legionella antigen were more unremarkable. Blood and urine cultures are pending. Initial chest x-ray was unremarkable. CT of the abdomen pelvis was performed and showed a nodular liver compatible with cirrhosis, large amount of free fluid in the abdomen consistent with ascites, multiple low-density areas in the dome of the right liver which were suggestive of cyst versus mass and further evaluation with MRI was recommended and a left sided pleural effusion with compressive atelectasis was noted. There is initial concern for infection so he was admitted to the ICU and started on broad-spectrum antibiotics after cultures were obtained. He also had a significant amount of ascites so he was sent for paracentesis at which time over 4000 cc were removed. Cultures were negative for this and blood and urine and cytology was negative on the fluid when sent for pathology. Abdominal MRI showed a large liver mass in the setting of cirrhosis consistent with hepatocellular carcinoma and as well as a portal vein thrombus which extended to the marcus hepatis which was concerning for tumor extension. Upon finding this he was given therapeutic Lovenox x 1 dose and I had a long conversation with family with regards to goals of care. An AFP was drawn at the time of the tumor identification however was still pending at the time of discharge. Given his age, comorbidities, and generalized debility now in conjunction with newly diagnosed hepatocellular carcinoma family wanted to keep him comfortable and hospice was consulted. Hospice evaluated the patient on 10/12/2023 and deemed him appropriate for inpatient hospice management and he was discharged to the [facility] on 10/05/2023. 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 Intractable nausea and vomiting Left-sided pleural effusion Ascites Severe malnutrition CKD stage IIIb Toxic/metabolic encephalopathy Hyperbilirubinemia Thrombocytopenia Mild anemia Essential hypertension Hyperlipidemia BPH with obstruction/history of prostate cancer GERD History of pancreatitis CAD/history of stroke Dementia Physical Exam Const alert, no apparent distress and average body habitus; Negative for healthy appearing or well nourished Constitutional Narrative: Elderly, white male, lying in bed sleeping soundly, patient appears comfortable, nontoxic General Appearance: comfortable, well kempt and well developed Orientation / Consciousness: other Other Details: Sleeping HEENT head/scalp atraumatic and moist oral mucous membranes; Negative for hearing grossly normal bilaterally HEENT Narrative: Dentition is poor, Mallampati is 2, no thrush Resp normal respiratory effort, no retractions, no use of accessory muscles and clear to auscultation bilaterally Auscultation: Negative for crackles, rhonchi or wheezes Cardio regular rate, regular rhythm, S1 normal heart sound, S2 normal heart sound, no murmurs, no rub, no gallops and no clicks GI GI Narrative: fluid wave present, bowel sounds are normal, abdomen is soft with no focal tenderness Extremity Extremity Narrative: Trace bilateral lower extremity edema, pedal pulses are 2+ bilaterally, no cyanosis or clubbing, significantly reduced lean muscle mass Neuro Neuro Narrative: Unable to examine as patient is asleep Psych Psych Narrative: Patient sleeping Weight / BMI Weight Weight: 89.9 kg Body Mass Index (BMI) 26.9 ABG / Lab / Microbiology Data 10/12/23 06:10 10/12/23 06:10 Laboratory: Laboratory Results - last 24 hr 10/12/23 06:10: WBC 8.5, RBC 3.82 L, Hgb 11.4 L, Hct 36.7 L, MCV 96.1 H, MCH 29.8, MCHC 31.1 L, RDW Std Deviation 61.0 H, RDW Coeff of Netta 17.6 H, Plt Count 166, MPV 11.7, Immature Gran % (Auto) 1.100 H, Neut % (Auto) 74.8 H, Lymph % (Auto) 12.1 L, [place] % (Auto) 8.9, Eos % (Auto) 2.5, Baso % (Auto) 0.6, Absolute Neuts (auto) 6.4, Absolute Lymphs (auto) 1.03, Nucleated RBC % 0, Sodium 139, Potassium 3.4 L, Chloride 112 H, Carbon Dioxide 20.0 L, Anion Gap 7, BUN 28 H, Creatinine 1.65 H, Estim Creat Clear Calc 34.62, Est GFR (MDRD) Af Amer 51 L, Est GFR (MDRD) Non-Af 42 L, BUN/Creatinine Ratio 17.0, Glucose 130 H, Calcium 8.9, Total Bilirubin 1.90 H, AST 368 H, ALT 67 H, Alkaline Phosphatase 123 H, Total Protein 6.7, Albumin 1.7 L, Globulin 5.0 H, Albumin/Globulin Ratio 0.3 L Microbiology: Microbiology 10/09/23 14:18 Fluid - Paracentesis (Abd) Gram Stain - Final 10/09/23 14:18 Fluid - Paracentesis (Abd) Body Fluid Culture - Final No growth aerobically. 10/09/23 14:18 Fluid - Paracentesis (Abd) Anaerobic Culture - Preliminary No growth in 48 hours. 10/08/23 18:40 Blood Culture (Wb) - No Site/Description Given Blood Culture - Preliminary No growth in 48 hours. 10/08/23 18:15 Blood Culture (Wb) - Anticubital Right Blood Culture - Preliminary No growth in 48 hours. 10/08/23 18:33 Urine Catheter - [place] Urine Culture - Final Escherichia coli Escherichia coli#2 10/10/23 13:40 Stool Clostridioides difficile (PCR) - Final 10/08/23 22:20 Mucosa - Nasopharyngeal SARS-CoV-2, Influenza & RSV (PCR) - Final 10/08/23 18:33 Urine Catheter - [place] Legionella Antigen - Final 10/08/23 18:33 Urine Catheter - [place] Streptococcus pneumoniae Antigen (M - Final D/C Instructions Discharge Diet: No restrictions Meaningful Use Info Meaningful Use Meaningful Use Diagnoses (Choose all that apply): None applicable Ischemic Stroke Statin Dosing Therapy Reference: STATIN DOSE THERAPY REFERENCE: * Patients > 75 years receive moderate or high dose statin therapy. * Patients 75 years or YOUNGER should receive HIGH intensity statin dose unless contraindicated. You will be required to document reason for non-treatment if statin daily dose does not meet guidelines. HIGH DOSE STATIN THERAPY DAILY Atorvastatin > than or = to 40 mg Rosuvastatin > than or = to 20 mg Amlodipine + Atorvastatin > than or = to 2.5/40 mg Ezetimibe + Simvastatin 10/80 mg Simvastatin 80mg Discharge Plan Admission Admit Date/Time: 10/08/23 21:48 Primary Reason for Your Visit: weakness Attending Provider: Serena Ross Primary Care Provider: Montez Marshall Consulting Providers: Donny Morgan; Donny Conte; Bettye Frances; Larissa Lovell; Lyudmila Andres [employer] CONTROL ANALYST Discharge Orders/Prescriptions Prescriptions: Continued pantoprazole 40 mg tablet,delayed release (DR/EC) 40 mg PO DAILY docusate sodium 100 mg capsule 100 mg PO DAILY PRN (Reason: stool softener) furosemide 20 mg tablet 20 mg PO DAILY PRN (Reason: edema) hydrocortisone [Procto-Med HC] 2.5 % cream with perineal applicator 1 applic DE BID PRN (Reason: skin irritation) lidocaine 5 % ointment 1 applic topical TID Discontinued atorvastatin 80 mg tablet 80 mg PO DAILY potassium chloride 8 mEq capsule, extended release 8 meq PO DAILY hydrocodone-acetaminophen 5-325 mg tablet 1 tab PO Q6H PRN PRN (Reason: pain) aspirin [Adult Low Dose Aspirin] 81 mg tablet,delayed release (DR/EC) 81 mg PO DAILY spironolactone 25 mg tablet 25 mg PO DAILY tamsulosin 0.4 mg capsule 0.4 mg PO DAILY Referrals / Follow Up: Montez Marshall MD [Primary Care Provider] - Disposition Disposition (needs filled in before D/C Order can be placed): Home, Self Care Charges/Coding Visit Charges Inpatient E&M: 39781 [facility] Hosp
--- NOTE | 2023-10-12 18:57 | NURSING ---
Called report to Mckenna JANE in [facility]
[2023-10-12 22:23] VITALS: BP 113/68; PULSE 108; RESP 20; TEMP 37.2; O2SAT 93
[2023-10-13 15:34] LABS: AFP, Tumor Marker 223018 ng/mL (0.0-6.4)
== END 2023-10-12 23:16 | disposition hospice, inpatient (51) | DRG 435 ==
LOC: ED 19:40 → ICU 22:03 → PCU 10-09 17:08
PROVIDERS: Admitting Provider Internal Medicine; Emergency Provider Emergency Medicine; PCP Family Medicine; Visit Provider Internal Medicine
DX: C22.0 Liver cell carcinoma (principal); G92.8 Other toxic encephalopathy; I81 Portal vein thrombosis; E43 Unspecified severe protein-calorie malnutrition; R18.8 Other ascites; J90 Pleural effusion, not elsewhere classified; N13.8 Other obstructive and reflux uropathy; D69.59 Other secondary thrombocytopenia; N18.32 Chronic kidney disease, stage 3b; F03.C0 Unspecified dementia, severe, without behavioral disturbance, psychotic disturbance, mood disturbance, and anxiety; D63.1 Anemia in chronic kidney disease; I12.9 Hypertensive chronic kidney disease with stage 1 through stage 4 chronic kidney disease, or unspecified chronic kidney disease; K75.81 Nonalcoholic steatohepatitis (NASH); E78.5 Hyperlipidemia, unspecified; I25.10 Atherosclerotic heart disease of native coronary artery without angina pectoris; K21.9 Gastro-esophageal reflux disease without esophagitis; N40.1 Benign prostatic hyperplasia with lower urinary tract symptoms; Z95.1 Presence of aortocoronary bypass graft; Z68.26 Body mass index [BMI] 26.0-26.9, adult; Z79.82 Long term (current) use of aspirin; Z79.899 Other long term (current) drug therapy; Z85.46 Personal history of malignant neoplasm of prostate; Z86.59 Personal history of other mental and behavioral disorders; Z86.73 Personal history of transient ischemic attack (TIA), and cerebral infarction without residual deficits; Z87.19 Personal history of other diseases of the digestive system
CPT/HCPCS: 36415; 49083; 51702; 71045; 74177; 74183; 80053; 80202; 81001; 82105; 82140; 82945; 83605; 83615; 83690; 83735; 83880; 84100; 84145; 84157; 84443; 84484; 85025; 85610; 85730; 87040; 87070; 87075; 87077; 87086; 87088; 87186; 87205; 87449; 87493; 87631; 88108; 88305; 88313; 89050; 93005; 97162; 97166; 97530; 97535; 97802; 99285; A9575; J7030; J7040; J7050; Q9967; A4216